=== PATIENT | female | born 1965 | race Caucasian/White ===

== ENCOUNTER 2022-07-30 17:18 | Inpatient (IN) ==
[2022-07-30] MEDS ORDERED: SODIUM CHLORIDE 0.9% 1000ML 1,000 ML IV STA (17:26)
[2022-07-30] MEDS ORDERED: MoRPHine SULFATE 4 MG/ML 1 ML CARP\\VIAL IV STA (18:03)
[2022-07-30] MEDS ORDERED: ONDANSETRON INJ 2 MG/ML 2 ML VIAL IV STA (18:12)
[2022-07-30 18:13] LABS: Basophils # (auto) 0.03 K/uL (0-0.2); Basophils % (auto) 0.3 %; Eosinophils # (auto) 0.03 K/uL (0-0.50); Eosinophils % (auto) 0.3 %; Hematocrit (blood only) 39.1 % (37.0-47.0); Hemoglobin 12.7 g/dl (12.0-16.0); Immature Granulocytes # (auto) 0.04 K/uL (0.01-0.20); Immature Granulocytes % (auto) 0.4 %; Lymphocytes # (auto) 1.92 K/uL (1.2-3.4); Mean Corpuscular Hemoglobin 27.4 pg (25.0-34.0); Mean Corpuscular Hgb Conc 32.5 g/dL (32.0-36.0); Mean Corpuscular Volume 84.4 fL (80.0-100.0); Mean Platelet Volume 11.1 fL (9.4-12.4); Monocytes # (auto) 0.49 K/uL (0.11-0.59); Monocytes % (auto) 4.3 %; Neutrophils # (auto) 8.81 K/uL (1.40-6.50); Neutrophils % (auto) 77.7 %; Platelet Count 314 K/uL (130-400); RDW Standard Deviation 48.9 fL (36.4-46.3); Red Blood Count 4.63 M/uL (4.20-5.40); White Blood Count 11.32 K/ul (4.8-10.8)
--- NOTE | 2022-07-30 18:13 | Emergency Department Note ---
Impression & Plan Abdominal pain, Diverticulitis of intestine with perforation and abscess ED Provider Note INFORMANT: Patient ED PROVIDER(S): Barrera Garcia DO CHIEF COMPLAINT: Generalized abdominal pain PLAN: Disposition: Admission Outpatient prescription management: none Discussion with: I spoke with the hospitalist, who will see the patient for admission/observation and further evaluation and consultation. MEDICAL DECISION MAKING: This is a 57-year-old female who presents to the ED with a chief complaint of abdominal pain. The patient states that her symptoms started last night. She states that initially started in the left lower quadrant. Now it is all over. She describes it as a severe pain. She states that 3 weeks ago she had diverticulitis. She was on 2 courses of antibiotics for this and it seemed like it did not get better yet. She is currently on Bactrim. She has not recall the previous antibiotic she was taking. She states that it was confirmed by CT scan in [place]. She is visiting from out of town. She states that this morning she had a bowel movement but was small. On my exam she has some diffuse tenderness. Signs reveal mild tachycardia with heart rate of 112. Otherwise unremarkable vital signs. She does have a spine stimulator for some chronic pain issues in her legs. No previous abdominal surgeries. A CT scan shows severe divert iculitis with some abscesses that are not amenable to percutaneous drainage. The patient CBC did not show significant leukocytosis or anemia. Electrolytes were normal. Urine did not show infection. The patient was told the results of the test. She will be seen by the hospitalist for further evaluation and care. CT scan images were reviewed with the daughter and patient per their request. Triage Nursing notes reviewed. Vital Signs: reviewed Prior /Outside records reviewed: none Differential diagnosis: Differential includes diverticulitis, bowel perforation appendicitis, pancreatitis, other. Diagnostics, as interpreted by me: 12 lead ECG: none Cardiac Monitoring ordered: none Medical decision rules: none Imaging studies: CT scan of the abdomen pelvis: No bowel obstruction. Radiologist reports severe diverticulitis Procedures: none. Critical care: none. HPI: See MDM above. PAST MEDICAL HISTORY: See Below PAST SURGICAL HISTORY: See Below SOCIAL HISTORY: See Below HOME MEDICATIONS: See Below ALLERGIES: See Below VITALS: See Below PHYSICAL EXAMINATION: See MDM for positive findings otherwise unremarkable. CONSTITUTIONAL/VITAL SIGNS: Reviewed GENERAL:done as appropriate INTEGUMENTARY: done as appropriate HEAD: done as appropriate EYES: done as appropriate RESPIRATORY: done as appropriate CARDIOVASCULAR:done as appropriate GI/ABDOMEN:done as appropriate EXTREMITIES: done as appropriate NEUROLOGICAL: done as appropriate PSYCHIATRIC:done as appropriate MUSCULOSKELETAL:done as appropriate TRIAGE NURSING DOCUMENTATION REVIEWED. Past Med/Surg History Social History Feels Safe at Home: Yes Allergies Allergies Allergy/AdvReac Type Severity Reaction Status Date / Time prednisone Allergy Intermediate ITCHY RASH Verified 07/30/22 19:03 hydrocodone AdvReac Intermediate HOT/COLD, Verified 07/30/22 19:03 SHAKES, NAUSEA Home Meds Home Medications Medication Instructions Recorded Confirmed Progesterone Tab 1 dose PO DIRECTED 07/30/22 07/30/22 albuterol sulfate 90 mcg/actuation 2 puff inhalation Q6H PRN Pain 07/30/22 07/30/22 aerosol inhaler [id number]-[id number]-zzlidlmx 250 1 tab PO DIRECTED PRN Pain 07/30/22 07/30/22 mg-250 mg-65 mg tablet (Excedrin Extra Strength) diclofenac sodium 75 mg 75 mg PO DIRECTED PRN Pain 07/30/22 07/30/22 tablet,delayed release gabapentin 600 mg tablet 600 mg PO BID 07/30/22 07/30/22 nortriptyline 50 mg capsule 50 mg PO HS 07/30/22 07/30/22 sulfamethoxazole 800 1 tab PO BID 07/30/22 07/30/22 mg-trimethoprim 160 mg tablet thyroid (pork) 60 mg tablet (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 60 mg PO DAILY 07/30/22 07/30/22 Thyroid) topiramate 50 mg tablet 50 mg PO DAILY 07/30/22 07/30/22 tramadol 50 mg tablet 50 mg PO DIRECTED PRN Pain 07/30/22 07/30/22 Results & Data (ED) Vital Signs Vital Signs - 24 hr 07/30/22 17:23 07/30/22 18:12 07/30/22 17:26 Temperature 36.8 C Temperature Source Temporal Artery Scan Pulse Rate 112 H 102 H 96 H Pulse Rate [Apical] Pulse Rhythm Regular Pulse Rhythm [Apical] Respiratory Rate 18 Respiratory Effort / Characteristics Non-Labored Respiratory Depth Normal Blood Pressure 115/72 Blood Pressure [Right Arm] Blood Pressure Mean 86 Blood Pressure Mean [Right Arm] Blood Pressure Position Sitting Pulse Oximetry 95 100 Oxygen Delivery Method Room Air Room Air Sepsis Recent Fever Within 48 Hours No Sepsis New/Unexplained Change in Mental Status No Sepsis Action Taken by Nursing No Action Required 07/30/22 19:54 Temperature Temperature Source Pulse Rate Pulse Rate [Apical] 94 H Pulse Rhythm Pulse Rhythm [Apical] Regular Respiratory Rate 16 Respiratory Effort / Characteristics Non-Labored Respiratory Depth Normal Blood Pressure Blood Pressure [Right Arm] 130/88 Blood Pressure Mean Blood Pressure Mean [Right Arm] 102 Blood Pressure Position Pulse Oximetry 99 Oxygen Delivery Method Room Air Sepsis Recent Fever Within 48 Hours Sepsis New/Unexplained Change in Mental Status Sepsis Action Taken by Nursing Laboratory Data 07/30/22 17:42 07/30/22 17:42 Lab Results 07/30/22 07/30/22 07/30/22 Range/Units 17:42 17:42 18:39 WBC 11.32 H (4.8-10.8) K/ul RBC 4.63 (4.20-5.40) M/uL Hgb 12.7 (12.0-16.0) g/dl Hct 39.1 (37.0-47.0) % MCV 84.4 (80.0-100.0) fL MCH 27.4 (25.0-34.0) pg MCHC 32.5 (32.0-36.0) g/dL RDW Std Deviation 48.9 H (36.4-46.3) fL RDW Coeff of Randall 16.0 H (11.5-14.5) % Plt Count 314 (130-400) K/uL MPV 11.1 (9.4-12.4) fL Immature Gran % (Auto) 0.4 % Neut % (Auto) 77.7 % Lymph % (Auto) 17.0 % [place] % (Auto) 4.3 % Eos % (Auto) 0.3 % Baso % (Auto) 0.3 % Neut # (Auto) 8.81 H (1.40-6.50) K/uL Lymph # (Auto) 1.92 (1.2-3.4) K/uL [place] # (Auto) 0.49 (0.11-0.59) K/uL Eos # (Auto) 0.03 (0-0.50) K/uL Baso # (Auto) 0.03 (0-0.2) K/uL Immature Gran # (Auto) 0.04 (0.01-0.20) K/uL Sodium 132 L (136-145) mmol/L Potassium 3.8 (3.5-5.1) mmol/L Chloride 105 (98-107) mmol/L Carbon Dioxide 22 (21-32) mmol/L Anion Gap 5 (3-11) BUN 14 (6-23) mg/dl Creatinine 1.20 (0.6-1.2) mg/dl Est Cr Clr Drug Dosing 50.7 ml/min Est GFR ( Amer) 58.1 ml/min Est GFR (Non-Af Amer) 50.1 ml/min BUN/Creatinine Ratio 11.7 (10-20) Glucose 137 H (70-99(Fasting)) mg/dl Calcium 8.8 (8.6-10.3) mg/dl Total Bilirubin 0.5 (0.2-1.0) mg/dl AST 14 (13-39) U/L ALT 15 (7-52) U/L Alkaline Phosphatase 58 (34-104) U/L Total Protein 6.9 (6.0-8.3) gm/dl Albumin 3.9 (3.4-5.0) gm/dl Globulin 3.0 (2.5-4.0) gm/dl Albumin/Globulin Ratio 1.3 (0.9-2) Lipase 12 (11-82) U/L Urine Color Yellow Urine Appearance Cloudy A (Clear) Urine pH 7.5 (4.5-7.5) Ur Specific [place] 1.008 (1.000-1.030) Urine Protein Negative (Negative) Urine Glucose (UA) Negative (Negative) Urine Ketones Negative (Negative) Urine Blood Negative (Negative) Urine Nitrite Negative (Negative) Urine Bilirubin Negative (Negative) Urine Urobilinogen Negative (Negative) Ur Leukocyte Esterase Negative (Negative) Urine WBC (Auto) 1-5 (0-5) /hpf Urine RBC (Auto) 0-4 (0-4) /hpf U Hyaline Cast (Auto) 1-5 (0-5) /lpf U Epithel Cells (Auto) >30 H (0-5) /lpf Urine Bacteria (Auto) 2+ H (Negative) Administered Medications Piperacillin Sod/Tazobactam Sod (Zosyn) 4.5 gm in 120 mls @ 240 mls/hr IV NOW ONE Stop: 07/30/22 20:08 Last Admin: 07/30/22 19:45 Dose: 240 mls/hr Documented By: NRB Discontinued Medications Sodium Chloride (Nss 1000ml) 1,000 mls @ 999 mls/hr IV .Q1H1M STA Stop: 07/30/22 18:26 Last Infusion: 07/30/22 18:34 Dose: 0 mls/hr Documented By: Admin: 07/30/22 17:41 Dose: 999 mls/hr Documented By: NRB Ioversol (Optiray 350 100ml) 86 ml IV ONCE ONE Stop: 07/30/22 19:03 Last Admin: 07/30/22 19:02 Dose: 86 ml Documented By: RACHEL Ketorolac Tromethamine (Ketorolac 30 Mg/Ml Vial) 30 mg IV NOW STA Stop: 07/30/22 19:40 Last Admin: 07/30/22 19:43 Dose: 30 mg Documented By: SATHISH Morphine Sulfate (Morphine Sulfate 4 Mg/Ml 1 Ml Carp\Vial) 4 mg IV NOW STA Stop: 07/30/22 18:04 Last Admin: 07/30/22 18:09 Dose: 4 mg Documented By: SATHISH Ondansetron HCl (Ondansetron Inj 2 Mg/Ml 2 Ml Vial) 4 mg IV NOW STA Stop: 07/30/22 18:13 Last Admin: 07/30/22 18:14 Dose: 4 mg Documented By: SATHISH Imaging Data Radiologist's Impression: Abdomen/Pelvis CT 07/30/22 17:26 CT SCAN OF THE ABDOMEN AND PELVIS WITH IV CONTRAST CLINICAL HISTORY: Mid abdominal pain. COMPARISON STUDY: No priors. TECHNIQUE: Following the IV administration of 86 cc of Optiray 350, CT scan of the abdomen and pelvis is performed from the lung bases to the proximal femora. Images are reviewed in the axial, sagittal, and coronal planes. IV contrast was administered without complication. A dose lowering technique was utilized adhering to the principles of ALARA. CT DOSE: 576.13 mGy.cm FINDINGS: Lung bases: The heart is normal in size and without pericardial effusion. There is mild elevation of the right hemidiaphragm and bibasilar atelectasis. No airspace consolidation or pleural effusion is identified. Liver: The contrast-enhanced liver is normal in size, contour, and attenuation. There is no intrahepatic biliary ductal dilatation. The hepatic veins and portal veins are patent. Gallbladder: Unremarkable. Spleen: Normal in size and attenuation. Pancreas: Unremarkable. Adrenal glands: Unremarkable. Kidneys: The contrast enhanced kidneys are normal in size and without hydronephrosis. The kidneys enhance symmetrically. Urothelial thickening of the left ureter is likely related to adjacent diverticulitis. Abdominal vasculature: The abdominal aorta is normal in course and caliber. Bowel: There is advanced diverticulosis of left colon. There is wall thickening with pericolonic inflammation and fluid involving the proximal sigmoid colon consistent with acute diverticulitis. There is evidence of contained perforation with foci of extraluminal gas and a 1.7 cm developing fluid collection seen on axial image #334. Question a second 1.9 cm intramural abscess on image #343. No bowel obstruction is seen. Moderate fecal retention is noted in the right colon. The appendix is well-visualized and normal. Peritoneum: There are tiny foci of extraluminal gas adjacent to the sigmoid colon. No free air seen in the diaphragm. There is trace free fluid in the pelvis. There is a fat-containing umbilical hernia. Lymphadenopathy: None. Pelvic viscera: The bladder is distended. There is mildly asymmetric wall thicke luke along the left aspect of the bladder, likely related to adjacent diverticulitis. The uterus is surgically absent. The left ovary appears mildly enlarged and hyperemic, likely representing a reactive oophoritis. Skeletal structures: The skeletal structures are osteopenic. No lytic or blastic lesions are seen. A neurostimulator device is present in the left supragluteal soft tissues. Leads enter the central canal in the mid to lower thoracic region. Sclerotic change is noted in the pubic symphysis. IMPRESSION: 1. There is advanced diverticulosis of the left colon with severe acute sigmoid diverticulitis. 2. There is evidence of contained perforation, with small foci of extraluminal gas and a 1.7 cm developing diverticular abscess. There is also likely a 1.9 cm intramural abscess involving the sigmoid colon. These are too small for percutaneous drainage. 3. Mild asymmetric thickening of the left bladder wall and oophoritis of the left ovary are likely related to inflammation from adjacent diverticulitis. 4. Additional findings as above. ACT 112: Negative or not required by law. Electronically signed by: Kel Chapman M.D. 07/30/2022 7:27 PM Discharge Plan Visit Data Chief Complaint: Abdominal Pain Stated Complaint: ABDOMINAL PAIN ED Provider: Barrera Garcia Discharge Problem: Abdominal pain, Diverticulitis of intestine with perforation and abscess Patient Disposition: Being Evaluated by Hospitalist Forms Stand Alone Forms: My [facility] Prescriptions Prescriptions: No Action gabapentin 600 mg tablet 600 mg PO BID sulfamethoxazole-trimethoprim 800-160 mg tablet 1 tab PO BID Rx Instructions: WAS ORDERED 07/07/22 FOR 7 DAYS. tramadol 50 mg Tablet 50 mg PO DIRECTED PRN (Reason: Pain) Rx Instructions: DID NOT FIND ANY ORDER IN EXT MED HX. 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
[2022-07-30 18:25] LABS: Albumin Globulin Ratio 1.3 (0.9-2); Albumin Level 3.9 gm/dl (3.4-5.0); BUN Creatinine Ratio 11.7 (10-20); Bilirubin,Total 0.5 mg/dl (0.2-1.0); Calcium 8.8 mg/dl (8.6-10.3); Creatinine Clr Calc Pharmacy 50.7 ml/min; Est GFR (African American) 58.1 ml/min; Est GFR (Non-African American) 50.1 ml/min; Potassium 3.8 mmol/L (3.5-5.1); Total Protein 6.9 gm/dl (6.0-8.3)
[2022-07-30 18:54] LABS: Appearance Urine Cloudy (Clear); Bacteria Urine Automated 2+ (Negative); Bilirubin Urine Negative (Negative); Blood Urine Negative (Negative); Color Urine Yellow; Epithelial Cell Urine Auto >30 /lpf (0-5); Glucose Urine UA Negative (Negative); Ketones Urine Negative (Negative); Leukocyte Esterase Urine Negative (Negative); Nitrite Urine Negative (Negative); Protein Urine Negative (Negative); RBC Urine Automated 0-4 /hpf (0-4); Specific Gravity Urine 1.008 (1.000-1.030); Urobilinogen Urine Negative (Negative); pH Urine 7.5 (4.5-7.5)
[2022-07-30] MEDS ORDERED: OPTIRAY 350 100ml IV ONE (19:02)
--- NOTE | 2022-07-30 19:29 | CT Scan Report ---
CT SCAN OF THE ABDOMEN AND PELVIS WITH IV CONTRAST CLINICAL HISTORY: Mid abdominal pain. COMPARISON STUDY: No priors. TECHNIQUE: Following the IV administration of 86 cc of Optiray 350, CT scan of the abdomen and pelvi s is performed from the lung bases to the proximal femora. Images are reviewed in the axial, sagittal , and coronal planes. IV contrast was administered without complication. A dose lowering technique wa s utilized adhering to the principles of ALARA. CT DOSE: 576.13 mGy.cm FINDINGS: Lung bases: The heart is normal in size and without pericardial effusion. There is mild elevation of the right hemidiaphragm and bibasilar atelectasis. No airspace consolidation or pleural effusion is i dentified. Liver: The contrast-enhanced liver is normal in size, contour, and attenuation. There is no intrahepa tic biliary ductal dilatation. The hepatic veins and portal veins are patent. Gallbladder: Unremarkable. Spleen: Normal in size and attenuation. Pancreas: Unremarkable. Adrenal glands: Unremarkable. Kidneys: The contrast enhanced kidneys are normal in size and without hydronephrosis. The kidneys enh ance symmetrically. Urothelial thickening of the left ureter is likely related to adjacent diverticul itis. Abdominal vasculature: The abdominal aorta is normal in course and caliber. Bowel: There is advanced diverticulosis of left colon. There is wall thickening with pericolonic infl ammation and fluid involving the proximal sigmoid colon consistent with acute diverticulitis. There i s evidence of contained perforation with foci of extraluminal gas and a 1.7 cm developing fluid colle ction seen on axial image #334. Question a second 1.9 cm intramural abscess on image #343. No bowel o bstruction is seen. Moderate fecal retention is noted in the right colon. The appendix is well-visua lized and normal. Peritoneum: There are tiny foci of extraluminal gas adjacent to the sigmoid colon. No free air seen i n the diaphragm. There is trace free fluid in the pelvis. There is a fat-containing umbilical hernia. Lymphadenopathy: None. Pelvic viscera: The bladder is distended. There is mildly asymmetric wall thickening along the left a spect of the bladder, likely related to adjacent diverticulitis. The uterus is surgically absent. The left ovary appears mildly enlarged and hyperemic, likely representing a reactive oophoritis. Skeletal structures: The skeletal structures are osteopenic. No lytic or blastic lesions are seen. A neurostimulator device is present in the left supragluteal soft tissues. Leads enter the central sky l in the mid to lower thoracic region. Sclerotic change is noted in the pubic symphysis. IMPRESSION: 1. There is advanced diverticulosis of the left colon with severe acute sigmoid diverticulitis. 2. There is evidence of contained perforation, with small foci of extraluminal gas and a 1.7 cm devel oping diverticular abscess. There is also likely a 1.9 cm intramural abscess involving the sigmoid co ronna. These are too small for percutaneous drainage. 3. Mild asymmetric thickening of the left bladder wall and oophoritis of the left ovary are likely re lated to inflammation from adjacent diverticulitis. 4. Additional findings as above. ACT 112: Negative or not required by law. Electronically signed by: Kel Chapman M.D. 07/30/2022 7:27 PM
[2022-07-30] MEDS ORDERED: PIPERACILLIN/TAZOBACTAM 4.5 GM/120 ML BAG IV ONE (19:39)
[2022-07-30] MEDS ORDERED: KETOROLAC 30 MG/ML VIAL IV STA (19:39)
[2022-07-30] MEDS ORDERED: HYDROmorphone INJ 1 MG/ML SYRINGE IV STA (21:08)
--- NOTE | 2022-07-30 21:24 | Surgery Consultation ---
Date of Consultation July 30, 2022 Assessment & Plan (1) Diverticulitis of intestine with perforation and abscess: Patient is being admitted on the hospitalist service. They have requested a surgical consultation due to the patient's diverticulitis and we therefore recommend proceeding as follows: Provide analgesics Provide antiemetics Implement n.p.o. status (I think it would be okay for patient to have an occasional ice chip for comfort) Provide IV fluid for hydration Continue antibiotics.The patient has had Zosyn administered in the emergency department which should continue I had a lengthy discussion with the patient and her [id number] who was present at bedside. I have outlined the treatment plan for diverticulitis which includes bowel rest, hydration with IV fluids, and IV antibiotics. In addition analgesia and antiemetics will be utilized. I did discuss with the patient that we would like to try conservative measures as outlined above in hopes to avoid an emergency operation. I did discuss with the patient that an emergency operation with an unprepped bowel would most likely necessitate a temporary colostomy. I did discuss with the patient that we will monitor her clinical progress and we will consider advancing her diet as her abdominal exam improves. I also discussed with the patient that if she clinically deteriorates consideration can be given to reimaging her abdomen to see if there is any progression of her illness and I also discussed with her that if she would clinically deteriorate the possibility of requiring an emergency operation would have to be considered. At the present time the patient is noted to be hemodynamically stable and afebrile. We will continue to follow along while the patient is hospitalized with additional recommendations based on her clinical course as it unfolds and her response to the above treatment. Supervising Physician Co-Signing Physician Notes I personally saw and evaluated the patient with Cristian Thomas PA-C and agree with the assessment and plan. 57-year-old female with severe acute sigmoid diverticulitis Her CT images and results were personally viewed by myself, there does not seem to be any well-defined drainable abscess at this time We will try to treat her conservatively with IV fluids, IV antibiotics and n.p.o. status She is been admitted to the medical service We will continue to follow her abdominal exam clinically she may end up needing emergency surgery History of Present Illness Reason for Consultation: Diverticulitis History of Present Illness This is a 57-year-old female who presented to [facility] emergency department secondary to abdominal pain. The patient notes that approximately 3 weeks ago she developed some lower abdominal pain on the left side. She went to an emergency department in [place], [place] and she was placed on a 10-day course of an oral antibiotic which she does not remember the name of. She says that she was off the antibiotics for approximately 2 days but then the pain began to recur and the patient began taking an oral antibiotic again which she is unsure of the name. She subsequent travel to [place] to visit family and over the past 24 hours she began developing worsening abdominal pain. She noted that the pain was initially present greatest in the left lower quadrant but now is in a bandlike pattern across her entire lower abdomen. She denies any additional radiation of the abdominal pain. She notes that is improved with some medicines that were administered in the emergency department but does not note any other palliative factors. She notes that it is worse with certain movements she has had nausea without vomiting. She denies any fevers, shakes, or chills. She said that she did have a bowel movement earlier today and she denies any melena or hematochezia. The patient does report an episode of abdominal pain in October 2021 but she was never formally diagnosed with diverticulitis at that time. She has had a colonoscopy in the past approximately 5 years ago and to the best of her knowledge there is no significant pathology noted on the study. She has had prior abdominal surgeries in the form of an abdominal hysterectomy. The patient does note that she was scheduled to follow-up with a gastroenterology specialist due to her diverticulitis but has not yet had this appointment. Since arrival to the hospital the patient has had labs and imaging which I independently reviewed. A CT scan of the abdomen pelvis showed the patient had evidence of diverticulosis of the left colon with acute sigmoid diverticulitis of the sigmoid colon. Patient was also noted to have evidence of a contained perforation with a small foci of extraluminal gas along with a 1.7 cm developing diverticular abscess. She was also noted to have a 1.9 cm intramural abscess involving the sigmoid colon. Labs included a CBC where her white blood cell count was 11.3. Hemoglobin, hematocrit, and platelet count were normal. Chemistry profile showed sodium was 132. Potassium, BUN, and creatinine were normal. There is no elevation of patient's LFTs or lipase. A urinalysis did not show any pyuria and was negative for nitrites and leukocyte Estrace but there was 2+ bacteria on the study. A COVID test was noted to be negative. At the time of my interview the patient was resting in bed. She did express some abdominal discomfort but was in no distress and noted to be hemodynamically stable. Concerning past medical history the patient notes a history of chronic back pain for which she has a spinal stimulator. Concerning past surgical history the patient has had a vaginal hysterectomy, spine surgery (she is unsure of the exact procedure she had but described what sounds like a laminectomy), and insertion of a spinal stimulator secondary to chronic back pain Allergies the patient is allergic to citrus fruits but no medicines Social history she is a non-smoker Family history there is no family history of coronary artery disease Allergies Allergy/AdvReac Type Severity Reaction Status Date / Time prednisone Allergy Intermediate ITCHY RASH Verified 07/30/22 19:03 hydrocodone AdvReac Intermediate HOT/COLD, Verified 07/30/22 19:03 SHAKES, NAUSEA Home Medications Medication Instructions Recorded Confirmed Type Progesterone Tab 1 dose PO DIRECTED 07/30/22 07/30/22 History albuterol sulfate 90 mcg/actuation 2 puff inhalation Q6H PRN Pain 07/30/22 07/30/22 History aerosol inhaler [id number]-[id number]-[id number] 250 1 tab PO DIRECTED PRN Pain 07/30/22 07/30/22 History mg-250 mg-65 mg tablet (Excedrin Extra Strength) diclofenac sodium 75 mg 75 mg PO DIRECTED PRN Pain 07/30/22 07/30/22 History tablet,delayed release gabapentin 600 mg tablet 600 mg PO BID 07/30/22 07/30/22 History nortriptyline 50 mg capsule 50 mg PO HS 07/30/22 07/30/22 History sulfamethoxazole 800 1 tab PO BID 07/30/22 07/30/22 History mg-trimethoprim 160 mg tablet thyroid (pork) 60 mg tablet ([employer] 120 mg PO DAILY 07/30/22 07/31/22 History Thyroid) topiramate 50 mg tablet 50 mg PO DAILY 07/30/22 07/30/22 History tramadol 50 mg tablet 50 mg PO DIRECTED PRN Pain 07/30/22 07/30/22 History Patient History Social History Smoking Status: Never smoker Hx Alcohol Use: Yes Hx Substance Use: No Preferred Language: Ethiopian Communication Ability: Effective Title 1 Tutor Required: No Beliefs That Will Affect Care: Spiritism Spiritism Beliefs: Quaker Current Living Situation: Spouse Current Living Situation Comment: Lives with at home in [place] Other Information That Helps Us Care for You: No Feels Safe at Home: Yes Safety Concerns: Feels Safe At This Time Assistive Devices: Glasses Review of Systems Constitutional: no fever and no chills Eyes: + corrective lenses Ear, Nose, Mouth, Throat: no ear pain Respiratory: no cough Cardiovascular: no chest pain Gastrointestinal: as per Subjective / HPI Genitourinary: no dysuria Musculoskeletal: + back pain (Chronic problem) Integumentary: no rash Neurologic: no localized weakness Physical Exam Constitutional: WD/WN, vitals as above Eyes: no conjunctival abnormality Wears glasses ENMT: Ears: no hearing impairment and no external ear abnormality Mouth: no oropharynx abnormality Oral mucosa is dry Neck: trachea midline Respiratory: normal respiratory effort, lungs clear to auscultation Cardiovascular: Rate/Rhythm: regular rate and regular rhythm Vessels: dorsalis pedis pulses present and radial pulses present Gastrointestinal (Abdomen): Abdomen is noted to have mild distention. Bowel sounds are hypoactive. There is pain noted with palpation greatest in the left lower quadrant and to a lesser degree the suprapubic and right lower quadrants. There is some slight rebound tenderness noted Musculoskeletal: No calf tenderness, no lower extremity edema Skin: no rashes Neurologic: moves all extremities Psychiatric: A+Ox3, euthymic affect Results & Data Vital Signs (Past 12 Hours) Vital Signs Temp Pulse Pulse Resp BP BP Pulse Ox 07/30/22 19:54 94 H 16 130/88 99 07/30/22 17:26 96 H 100 07/30/22 18:12 102 H 07/30/22 17:23 36.8 C 112 H 18 115/72 95 O2 Del Method 07/30/22 19:54 Room Air 07/30/22 17:26 Room Air 07/30/22 18:12 07/30/22 17:23 Room Air PG Care Time/CCT Total # of Minutes Spent Total Time Spent with Patient: Total time spent is greater than 50% in coordination of care (as documented) at patient's floor/unit and/or counseling patient: Coding Level of Care Code 88500 IN/OBS CONSULT LVL 5,80M Diagnoses Diverticulitis of intestine with perforation and abscess K57.80
[2022-07-30] MEDS: D5W AND 1/2NSS 1,000 ML IV SCH (22:37)
[2022-07-30] MEDS ORDERED: HYDROmorphone INJ 0.5 MG/0.5 ML SYR IV STA (22:41)
[2022-07-30] MEDS ORDERED: HYDROmorphone INJ 0.5 MG/0.5 ML SYR ONE (22:44)
[2022-07-30] MEDS ORDERED: ALBUTEROL HFA 8 GM INHALER INH PRN (23:17)
[2022-07-30] MEDS ORDERED: NON-FORMULARY MEDICATION (Aspirin-Acetaminophen-Caffeine [Excedrin Extra Strength] 250-250 PO PRN (23:17)
[2022-07-30] MEDS ORDERED: PROGESTERONE PO SCH (23:30)
[2022-07-30] MEDS ORDERED: FAMOTIDINE 20 MG in SYRINGE 3 ML IV ONE (23:45)
[2022-07-31] MEDS: ENOXAPARIN INJ 40 MG/0.4 ML SYR SQ SCH ×2 (00:05→22:11)
[2022-07-31] MEDS: GABAPENTIN 600 MG TAB PO SCH ×3 (00:05→22:13)
[2022-07-31] MEDS: PIPERACILLIN/TAZOBACTAM 3.375 GM in DEXTROSE 5% 100 ML IV SCH ×4 (00:06→23:20)
[2022-07-31] MEDS ORDERED: NON-FORMULARY PATIENT'S OWN MED SCH (00:15)
[2022-07-31] MEDS: ACETAMINOPHEN 325 MG TAB PO PRN ×3 (00:19→18:32)
[2022-07-31] MEDS: HYDROmorphone INJ 0.5 MG/0.5 ML SYR IV PRN ×6 (02:50→23:27)
--- NOTE | 2022-07-31 02:58 | History and Physical Report ---
DATE OF ADMISSION: 07/30/2022. CHIEF COMPLAINT: Severe abdominal pain, diverticulitis. HISTORY OF PRESENT ILLNESS: A 57-year-old female with past medical history significant for asthma and allergies, thyroid problems, history of cervical cancer, status post partial hysterectomy 22 years ago and the patient has back surgeries for disk bulge and has spasms in the lower extremity and has a pain stimulator in the lower back, presents with abdominal pain. The patient is from [place], she is visiting her daughter. She came last Sunday. About 3 weeks ago in [place], she went to hospital for abdominal pain and found to have diverticulitis and she was treated with oral antibiotics for 10 days and after finishing 10 days of antibiotics, again her pain was not getting better. She was off of antibiotics for two days and the pain began to recur and the patient began to take oral antibiotics again. Not sure what she was taking, but looks like she currently is on Bactrim. After coming to [place] again after 24 hours, she started developing severe abdominal pain. When the pain is severe, she was having nausea, she was moving her bowels and had a bowel movement today. Denies any blood in stools.. Denies any fevers. Denies any chest pain, no shortness of breath. No cough. Has some headache, no blurred visions, no earache, no runny nose, no sore throat, no difficulty swallowing. She is having some urinary urgency. . Hemodynamically stable. Imaging studies in the ER showed advanced diverticulosis of the left colon with severe acute sigmoid diverticulitis and also evidence of contained perforation with small foci of extraluminal gas and 1.7 cm developing diverticular abscess. There is also likely 1.9 cm intramural abscess involving the sigmoid colon. They are too small for percutaneous drainage. Also, there is asymmetric thickening of the left bladder wall, and also oophoritis of the left ovary, likely related to inflammation of the adjacent diverticulitis. ALLERGIES: PREDNISONE AND HYDROCODONE. PAST MEDICAL HISTORY: As mentioned above. PAST SURGICAL HISTORY: Tonsillectomy, back surgery, partial hysterectomy and spinal stimulator placement. MEDICATIONS: The patient is on albuterol 2 puffs inhalation q. 6 hours p.r.n. Excedrin p.r.n. for migraines, diclofenac 75 mg p.o. p.r.n., gabapentin 600 mg p.o. b.i.d., nortriptyline 50 mg p.o. at bedtime, Colace 1 tablet as directed, Bactrim 1 tablet p.o. b.i.d., Thyroid 60 mg p.o. daily, Topamax 50 mg p.o. daily, tramadol 50 mg p.o. p.r.n. FAMILY HISTORY: Significant for father has hypertension. Sister has hypertension, colitis; mother has thyroid problems. SOCIAL HISTORY: Denies any smoking history. Alcohol, social drinking. REVIEW OF SYSTEMS: As per HPI. Rest of review of systems is negative. PHYSICAL EXAMINATION: GENERAL: The patient is of moderate build, not in acute distress. VITAL SIGNS: Temperature 36.8, pulse 87, respiratory rate 15, blood pressure 103/65, oxygen 96% on room air. HEENT: Pupils equal, round and reactive to light. Oral mucosa moist. NECK: No JVD, no neck masses. CARDIOVASCULAR: S1 and S2 heard. Regular rate and rhythm. No murmur, no gallop. RESPIRATORY SYSTEM: Normal AP diameter. No accessory muscle use. No wheezing, no crackles. ABDOMEN: Soft, bowel sounds present, no distention, Diffuse tenderness, guarding present. CENTRAL NERVOUS SYSTEM: Alert and oriented. Speech is clear. No facial droop. Obeys simple commands. Insight is okay. Moves extremities. EXTREMITIES: No edema, no erythema. LABORATORY DATA: WBC 11.3, hemoglobin 12.7, hematocrit 39.1, platelets 314. Sodium 132, potassium 3.8, chloride 105, bicarbonate 22, BUN 14, creatinine 1.2, serum glucose 137, calcium 8.8, total bilirubin 0.5, AST 14, ALT 15, alkaline phosphatase 58. Urinalysis, +2 bacteria. SARS-CoV-2 rapid test negative. IMAGING DATA: CT abdomen and pelvis with IV contrast shows advanced diverticulosis in the left colon with severe acute sigmoid diverticulitis with evidence of contained perforation with small focal area of extraluminal gas and 1.7 cm developing diverticular abscess with also likely 1.9 cm intramural abscess involving the sigmoid colon. These are too small for percutaneous drainage. Mild asymmetric thickening of the left bladder wall oophoritis of the left ovary are likely related to the inflammation from adjacent diverticulitis. ASSESSMENT AND PLAN: This 57-year-old female presents with severe abdominal pain and found to have recurrent diverticulitis. 1. Severe abdominal pain, recurrent diverticulitis: The patient has symptoms for the last 3 weeks. She was initially treated with 10 days of course of antibiotics. Her symptoms recurred 2 days later and then she started antibiotics, currently on Bactrim. CAT scan showing us the above. Seen by Surgery and recommends n.p.o., IV fluids, IV antiemetics, IV pain medication p.r.n. and IV Zosyn and closely monitor in the medical floor. 2. History of asthma: Continue home inhalers. 3. Deep venous thrombosis prophylaxis: Lovenox. DISPOSITION: Closely monitor in medical floor. Expect to discharge home and follow with family doctor. Job ID: [id number] MTDD
[2022-07-31 06:34] LABS: BUN Creatinine Ratio 11.2 (10-20); Creatinine Clr Calc Pharmacy 61.8 ml/min; Est GFR (African American) 74.2 ml/min; Magnesium 2.2 mg/dl (1.7-2.4)
[2022-07-31] MEDS: D5W AND 1/2NSS 1,000 ML IV SCH ×3 (06:40→22:11)
[2022-07-31 06:49] LABS: Basophils # (auto) 0.03 K/uL (0-0.2); Basophils % (auto) 0.3 %; Eosinophils # (auto) 0.12 K/uL (0-0.50); Eosinophils % (auto) 1.4 %; Hematocrit (blood only) 32.4 % (37.0-47.0); Hemoglobin 10.7 g/dl (12.0-16.0); Immature Granulocytes # (auto) 0.02 K/uL (0.01-0.20); Immature Granulocytes % (auto) 0.2 %; Lymphocytes # (auto) 2.37 K/uL (1.2-3.4); Lymphocytes % (auto) 27.2 %; Mean Corpuscular Hemoglobin 27.5 pg (25.0-34.0); Mean Corpuscular Volume 83.3 fL (80.0-100.0); Mean Platelet Volume 11.2 fL (9.4-12.4); Monocytes # (auto) 0.59 K/uL (0.11-0.59); Monocytes % (auto) 6.8 %; Neutrophils # (auto) 5.58 K/uL (1.40-6.50); Neutrophils % (auto) 64.1 %; Platelet Count 253 K/uL (130-400); RDW Coefficient of Variation 16.2 % (11.5-14.5); RDW Standard Deviation 48.9 fL (36.4-46.3); Red Blood Count 3.89 M/uL (4.20-5.40); White Blood Count 8.71 K/ul (4.8-10.8)
[2022-07-31] MEDS: TOPIRAMATE 50 MG TAB PO SCH (08:00)
[2022-07-31] MEDS: FAMOTIDINE 20 MG in SYRINGE 3 ML IV SCH ×2 (08:00→22:11)
[2022-07-31] MEDS ORDERED: ARMOUR THYROID 30 MG TAB PO SCH (09:00)
[2022-07-31] MEDS ORDERED: FEXOFENADINE HCL 180 MG TAB PO PRN (09:40)
--- NOTE | 2022-07-31 10:18 | Surgery Progress Note ---
Date of Service July 31, 2022 Assessment & Plan (1) Diverticulitis of intestine with perforation and abscess: Plan: She still having significant pain, however her vital signs are all stable and has a normal white blood cell count We will continue to try conservative management over the next 24 to 48 hours and see how she responds to this She still may require operation if she does not improve Admission and Anticipated Discharge Date Admission Date: July 30, 2022 Subjective Patient seen and examined. Still with left-sided abdominal pain. Afebrile. Denies any nausea or vomiting. Review of Systems Constitutional: no fever and no chills Physical Exam Constitutional: WD/WN, vitals as above Gastrointestinal (Abdomen): Inspection/Auscultation: abdomen normal to inspection; abdomen not distended Percussion/Palpation: + abdomen tender (Left lower quadrant), + guarding and abdomen soft; abdomen not rigid and no hernia Results & Data Vital Signs (Past 12 Hours) Vital Signs Temp Pulse Pulse Resp BP BP Pulse Ox 07/31/22 10:04 07/31/22 07:51 36.7 C 89 16 101/64 97 07/30/22 23:10 36.5 C 96 H 16 126/79 97 07/30/22 22:42 87 O2 Del Method 07/31/22 10:04 Room Air 07/31/22 07:51 Room Air 07/30/22 23:10 Room Air 07/30/22 22:42 PG Care Time/CCT Total # of Minutes Spent Total Time Spent with Patient: Total time spent is greater than 50% in coordination of care (as documented) at patient's floor/unit and/or counseling patient: Coding Level of Care Code 69860 SUB INP/OBS CARE 05/10MIN Diagnoses Diverticulitis of intestine with perforation and abscess K57.80
--- NOTE | 2022-07-31 10:44 | Hospitalist Progress Note ---
Date of Service July 31, 2022 Assessment & Plan (1) Abdominal pain: (2) Diverticulitis of intestine with perforation and abscess: Plan This is a 57-year-old female who is visiting the area from [place] and presents with persistent worsening abdominal pain. CT a/p: 1. There is advanced diverticulosis of the left colon with severe acute sigmoid diverticulitis.2. There is evidence of contained perforation, with small foci of extraluminal gas and a 1.7 cm developing diverticular abscess. There is also likely a 1.9 cm intramural abscess involving the sigmoid colon. These are too small for percutaneous drainage.3. Mild asymmetric thickening of the left bladder wall and oophoritis of the left ovary are likely related to inflammation from adjacent diverticulitis.4. Additional findings as above. Abdominal pain Acute sigmoid diverticulitis with perforation and abscess continue NPO, bowel rest, IVF, antiemetics Continue IV zosyn Pepcid IV Q12 general surg on board - continue conservative management for now, possible need for surgical intervention if no improvement will encourage incentive spirometry Hypothyroidism continue armor thyroid Hx of chronic back pain with spinal stimulator in place continue gabapentin, topamax, nortriptyline DVT ppx: SQ Lovenox Dispo: admitted to medical floor, not medically stable for discarge FULL CODE PCP: From [place] A total of 45 minutes was spent with greater than 50% of that time personally viewing all current laboratory work and diagnostic imaging studies obtained in the ED. Additionally, I was able to view the patients past medication reconciliation and history with direct visualization in the patients chart. Included in the time above, a portion of that time was spent assessing the patient while discussing and collaborating with specialists, if necessary, and making medical decision making on treatment plan. All of the above was collaborated with Dr. Barrett. Please see addendum for further details. Admission and Anticipated Discharge Date Admission Date: July 30, 2022 Supervising Physician Co-Signing Physician Notes Attending addendum: The patient was seen and examined in medical floor She complains to abdominal pain with abdomen distention, nausea and or vomiting She has been passing gas and bowel has not moved Does not feel any better since admission On examination Afebrile and hemodynamically stable with heart rate around 93/min Abdomensoft, mildly distended, tender all over and bowel sound diminished Her labs, medications and imaging studies reviewed Has acute sigmoid diverticulitis with abscess Appreciate surgery input and recommendation Review with assessment and plan as outlined above by Sharon Barrett Subjective Patient was seen and evaluated in room 383-1. Follow-up acute diverticulitis. Continuing to have a significant left lower quadrant abdominal pain that is radiating to right lower quadrant. She feels bloated and distended. Passed a small amount of flatus this morning. She denies nausea, vomiting, fever, chills, sweats, chest pain, shortness of breath, dysuria, increased urgency or frequency with urination, melena or hematochezia. She feels pain is not much improved since yesterday, although pain medications do help. She is from [place]. Has had 2 recent courses of antibiotics as outpatient for diverticulitis. She is visiting family in [facility]. Review of Systems Review of Systems: All systems reviewed & are unremarkable except as noted in HPI & below Physical Exam Physical Exam: Gen: WD/WN, NAD, A&O x3 HEENT: Normocephalic, atraumatic, conjunctivae moist, sclerae anicteric, mucous membranes moist. Lung: Clear to Auscultation bilaterally, no wheezes/rales/rhonchi Heart: Regular rate, regular rhythm, no murmurs, rubs, or gallops Abdomen: Soft, distended, TTP LLQ, no rebound/guarding, hypoactive bowel sounds x 4 Extremities: No edema Skin: Warm, no rash, negative turgor. Results & Data Results & Data Vital Signs (Past 12 Hours) Vital Signs Temp Pulse Pulse Resp BP BP Pulse Ox 07/31/22 10:04 07/31/22 07:51 36.7 C 89 16 101/64 97 07/30/22 23:10 36.5 C 96 H 16 126/79 97 07/30/22 22:42 87 O2 Del Method 07/31/22 10:04 Room Air 07/31/22 07:51 Room Air 07/30/22 23:10 Room Air 07/30/22 22:42 Laboratory Results Short CBC 07/30/22 07/31/22 Range/Units 17:42 05:23 WBC 11.32 H 8.71 (4.8-10.8) K/ul Hgb 12.7 10.7 L (12.0-16.0) g/dl Hct 39.1 32.4 L (37.0-47.0) % Plt Count 314 253 (130-400) K/uL BMP 07/30/22 07/31/22 17:42 05:23 Sodium 132 L 133 L Potassium 3.8 4.0 Chloride 105 109 H Carbon Dioxide 22 22 BUN 14 11 Creatinine 1.20 0.98 Glucose 137 H 127 H Calcium 8.8 8.0 L Liver Function 07/30/22 Range/Units 17:42 Total Bilirubin 0.5 (0.2-1.0) mg/dl AST 14 (13-39) U/L ALT 15 (7-52) U/L Alkaline Phosphatase 58 (34-104) U/L Albumin 3.9 (3.4-5.0) gm/dl Urine 07/30/22 Range/Units 18:39 Urine Color Yellow Urine Appearance Cloudy A (Clear) Urine pH 7.5 (4.5-7.5) Ur Specific [place] 1.008 (1.000-1.030) Urine Protein Negative (Negative) Urine Glucose (UA) Negative (Negative) Diagnostic Findings Abdomen/Pelvis CT 07/30/22 17:26 CT SCAN OF THE ABDOMEN AND PELVIS WITH IV CONTRAST CLINICAL HISTORY: Mid abdominal pain. COMPARISON STUDY: No priors. TECHNIQUE: Following the IV administration of 86 cc of Optiray 350, CT scan of the abdomen and pelvis is performed from the lung bases to the proximal femora. Images are reviewed in the axial, sagittal, and coronal planes. IV contrast was administered without complication. A dose lowering technique was utilized adhering to the principles of ALARA. CT DOSE: 576.13 mGy.cm FINDINGS: Lung bases: The heart is normal in size and without pericardial effusion. There is mild elevation of the right hemidiaphragm and bibasilar atelectasis. No airspace consolidation or pleural effusion is identified. Liver: The contrast-enhanced liver is normal in size, contour, and attenuation. There is no intrahepatic biliary ductal dilatation. The hepatic veins and portal veins are patent. Gallbladder: Unremarkable. Spleen: Normal in size and attenuation. Pancreas: Unremarkable. Adrenal glands: Unremarkable. Kidneys: The contrast enhanced kidneys are normal in size and without hydrone phrosis. The kidneys enhance symmetrically. Urothelial thickening of the left ureter is likely related to adjacent diverticulitis. Abdominal vasculature: The abdominal aorta is normal in course and caliber. Bowel: There is advanced diverticulosis of left colon. There is wall thickening with pericolonic inflammation and fluid involving the proximal sigmoid colon consistent with acute diverticulitis. There is evidence of contained perforation with foci of extraluminal gas and a 1.7 cm developing fluid collection seen on axial image #334. Question a second 1.9 cm intramural abscess on image #343. No bowel obstruction is seen. Moderate fecal retention is noted in the right colon. The appendix is well-visualized and normal. Peritoneum: There are tiny foci of extraluminal gas adjacent to the sigmoid colon. No free air seen in the diaphragm. There is trace free fluid in the pelvis. There is a fat-containing umbilical hernia. Lymphadenopathy: None. Pelvic viscera: The bladder is distended. There is mildly asymmetric wall thickening along the left aspect of the bladder, likely related to adjacent diverticulitis. The uterus is surgically absent. The left ovary appears mildly enlarged and hyperemic, likely representing a reactive oophoritis. Skeletal structures: The skeletal structures are osteopenic. No lytic or blastic lesions are seen. A neurostimulator device is present in the left supragluteal soft tissues. Leads enter the central canal in the mid to lower thoracic region. Sclerotic change is noted in the pubic symphysis. IMPRESSION: 1. There is advanced diverticulosis of the left colon with severe acute sigmoid diverticulitis. 2. There is evidence of contained perforation, with small foci of extraluminal gas and a 1.7 cm developing diverticular abscess. There is also likely a 1.9 cm intramural abscess involving the sigmoid colon. These are too small for percutaneous drainage. 3. Mild asymmetric thickening of the left bladder wall and oophoritis of the left ovary are likely related to inflammation from adjacent diverticulitis. 4. Additional findings as above. ACT 112: Negative or not required by law. Electronically signed by: Kel Chapman M.D. 07/30/2022 7:27 PM Medications Administered Current Inpatient Medications Acetaminophen (Acetaminophen 325 Mg Tab) 650 mg PO Q4H PRN PRN Reason: pain/fever Stop: 08/29/22 23:16 Last Admin: 07/31/22 08:49 Dose: 650 mg Albuterol (Albuterol Hfa 8 Gm Inhaler) 2 puffs INH Q6H PRN PRN Reason: Pain Stop: 08/29/22 23:16 Enoxaparin Sodium (Enoxaparin Inj 40 Mg/0.4 Ml Syr) 40 mg SQ HS [facility] Stop: 08/29/22 23:16 Last Admin: 07/31/22 00:05 Dose: 40 mg Fexofenadine HCl (Fexofenadine Hcl 180 Mg Tab) 180 mg PO HS PRN PRN Reason: allergy Stop: 08/30/22 20:59 Gabapentin (Gabapentin 600 Mg Tab) 600 mg PO BID [facility] Stop: 08/29/22 23:16 Last Admin: 07/31/22 08:00 Dose: 600 mg Hydromorphone HCl (Hydromorphone Inj 0.5 Mg/0.5 Ml Syr) 0.5 mg IV Q3H PRN PRN Reason: Pain Stop: 08/13/22 23:16 Last Admin: 07/31/22 10:02 Dose: 0.5 mg Dextrose/Sodium Chloride (D5w And 1/2nss) 1,000 mls @ 125 mls/hr IV .Q8H [facility] Stop: 08/29/22 21:44 Last Admin: 07/31/22 06:40 Dose: 125 mls/hr Piperacillin Sod/Tazobactam (Sod 3.375 gm/ Dextrose) 115 mls @ 28.75 mls/hr IV Q8H [facility]; Protocol Stop: 08/10/22 00:00 Last Admin: 07/31/22 08:00 Dose: 28.8 mls/hr Famotidine 20 mg/ Syringe 5 mls @ 2.5 mls/min IV Q12H [facility] Stop: 08/30/22 08:59 Last Admin: 07/31/22 08:00 Dose: 2.5 mls/min Miscellaneous (*Progesterone*Order Awaiting Action) 1 each N/A QS [facility] Stop: 08/30/22 15:59 Nortriptyline HCl (Nortriptyline Hcl 25 Mg Cap) 50 mg PO HS [facility] Stop: 08/30/22 20:59 Ondansetron HCl (Ondansetron Inj 2 Mg/Ml 2 Ml Vial) 4 mg IV Q6H PRN PRN Reason: Nausea Stop: 08/29/22 23:16 Thyroid ([place] Thyroid 30 Mg Tab) 120 mg PO DAILY [facility] Stop: 08/31/22 08:59 Topiramate (Topiramate 50 Mg Tab) 50 mg PO DAILY [facility] Stop: 08/30/22 08:59 Last Admin: 07/31/22 08:00 Dose: 50 mg
[2022-07-31] MEDS ORDERED: KETOROLAC TROMETHAMINE 15 MG/ML VIAL IV ONE (18:45)
[2022-07-31] MEDS ORDERED: HYDROmorphone INJ 0.5 MG/0.5 ML SYR IV STA (20:12)
[2022-07-31] MEDS ORDERED: FLUCONAZOLE 50 MG TAB PO ONE (21:16)
[2022-07-31 21:55] LABS: Basophils # (auto) 0.03 K/uL (0-0.2); Basophils % (auto) 0.3 %; Eosinophils # (auto) 0.26 K/uL (0-0.50); Eosinophils % (auto) 2.9 %; Hematocrit (blood only) 34.3 % (37.0-47.0); Hemoglobin 11.3 g/dl (12.0-16.0); Immature Granulocytes # (auto) 0.03 K/uL (0.01-0.20); Immature Granulocytes % (auto) 0.3 %; Lymphocytes # (auto) 2.97 K/uL (1.2-3.4); Lymphocytes % (auto) 33.5 %; Mean Corpuscular Hemoglobin 27.6 pg (25.0-34.0); Mean Corpuscular Hgb Conc 32.9 g/dL (32.0-36.0); Mean Corpuscular Volume 83.9 fL (80.0-100.0); Mean Platelet Volume 10.7 fL (9.4-12.4); Monocytes # (auto) 0.55 K/uL (0.11-0.59); Monocytes % (auto) 6.2 %; Neutrophils # (auto) 5.02 K/uL (1.40-6.50); Neutrophils % (auto) 56.8 %; Platelet Count 261 K/uL (130-400); RDW Coefficient of Variation 16.1 % (11.5-14.5); RDW Standard Deviation 49.1 fL (36.4-46.3); Red Blood Count 4.09 M/uL (4.20-5.40); White Blood Count 8.86 K/ul (4.8-10.8)
[2022-07-31 22:03] LABS: BUN Creatinine Ratio 6.9 (10-20); Calcium 8.4 mg/dl (8.6-10.3); Creatinine Clr Calc Pharmacy 59.9 ml/min; Est GFR (African American) 71.6 ml/min; Est GFR (Non-African American) 61.7 ml/min
[2022-07-31] MEDS: NORTRIPTYLINE HCL 25 MG CAP PO SCH (22:12)
--- NOTE | 2022-07-31 22:22 | Communication Note ---
Date of Service: July 31, 2022 I was asked by hospitalist to visit with patient at bedside as she notes continued abdominal pain and family had questions. I visited with the patient at the bedside where she was noted to have a blood pressure of 95/57 and a pulse of 94. She is noted to be afebrile. She appears to be resting comfortably in bed. The patient does note that her pain is worse in the left lower quadrant. She reports that she has begun to pass some flatus but has not had a bowel movement since admission. Patient also reports that she feels as though she is developing a yeast infection related to her antibiotics and has requested Diflucan. (I have ordered this medication for) On physical exam the patient's abdomen is noted to be nonrigid and is actually softer than what I noted at time of admission to the hospital. Bowel sounds are more active than what was noted at time of admission. Patient does have slight rebound tenderness which is also improved from time of admission. I did offer to check a KUB and some blood work and the patient desired to have this done. KUB was performed that did not show any evidence of free air. CBC revealed no leukocytosis. Chemistry profile did not show any evidence of acute kidney injury. We will continue to monitor the patient closely but I do not see any indication for an emergent operation. I again discussed with the patient the rationale behind bowel rest, intravenous fluids, and antibiotics and have noted to her that this may take several days to improve. d/w Roberto Thomas, KUB and labs reviewed. MIld increase in pain, vitals stable, KUB with no free air on my read, wbc normal. Continue non operative management
[2022-07-31] MEDS: ONDANSETRON INJ 2 MG/ML 2 ML VIAL IV PRN (22:55)
[2022-07-31] MEDS: PROGESTERONE 200 MG EXT SCH (23:21)
[2022-08-01] MEDS: HYDROmorphone INJ 0.5 MG/0.5 ML SYR IV PRN ×6 (04:15→21:02)
[2022-08-01] MEDS: D5W AND 1/2NSS 1,000 ML IV SCH ×3 (06:00→23:20)
--- NOTE | 2022-08-01 07:36 | XRay Report ---
XR KUB/Abdomen 1 view CLINICAL HISTORY: abdominal pain TECHNIQUE: 1 view of the abdomen was obtained. Comparison: Comparison is made to CT abdomen pelvis 07/30/2022 FINDINGS: Spinal stimulator is noted. Degenerative changes are seen in the visualized skeleton. The bowel gas p attern is nonobstructive. A moderate amount of stool is noted within the large bowel. IMPRESSION: Nonobstructive bowel gas pattern. ACT 112: Negative or not required by law. Electronically signed by: Krish Ruth M.D. 08/01/2022 7:34 AM
[2022-08-01] MEDS: ARMOUR THYROID 30 MG TAB PO SCH (07:44)
[2022-08-01] MEDS: PIPERACILLIN/TAZOBACTAM 3.375 GM in DEXTROSE 5% 100 ML IV SCH ×3 (08:10→23:15)
[2022-08-01] MEDS: FAMOTIDINE 20 MG in SYRINGE 3 ML IV SCH ×2 (08:11→21:01)
[2022-08-01] MEDS: ACETAMINOPHEN 325 MG TAB PO PRN ×2 (08:52→16:41)
--- NOTE | 2022-08-01 09:55 | Surgery Progress Note ---
Date of Service August 01, 2022 Assessment & Plan (1) Diverticulitis of intestine with perforation and abscess: Plan: Patient here with acute diverticulitis with developing abscess WBC 8 and patient's afebrile with stable vitals She still endorses severe abdominal pain worse in the LLQ- exam unchanged from yesterday We will continue conservative management, npo with ivf and iv abx Will obtain a CT a/p tomorrow morning for further evaluation of diverticulitis...maybe there will be some maturation of an abscess that can be drained Admission and Anticipated Discharge Date Admission Date: July 30, 2022 Supervising Physician Co-Signing Physician Notes I personally saw and evaluated the patient with Laura Coburn PA-C and agree with the assessment and plan. 57-year-old female with severe acute sigmoid diverticulitis She continues to have significant pain, however she is afebrile and has no tachycardia or leukocytosis We will plan to repeat her CT scan of the abdomen pelvis with p.o. and IV contrast tomorrow to see if any drainable abscess has formed Continue n.p.o. status and IV antibiotics Subjective Patient still with abdominal pain, worse in the LLQ. No nausea/vomiting. Reports hunger. Physical Exam Physical Exam: awake/alert, grimaces intermittently in pain Respiratory: normal respiratory effort Gastrointestinal (Abdomen): Percussion/Palpation: + abdomen tender (ttp in LLQ) and abdomen soft; abdomen not rigid Results & Data Vital Signs (Past 12 Hours) Vital Signs Temp Pulse Resp BP Pulse Ox O2 Del Method 08/01/22 07:24 36.7 C 88 18 105/68 97 Room Air PG Care Time/CCT Total # of Minutes Spent Total Time Spent with Patient: Total time spent is greater than 50% in coordination of care (as documented) at patient's floor/unit and/or counseling patient: Coding Level of Care Code 38458 SUB INP/OBS CARE 05/10MIN Diagnoses Diverticulitis of intestine with perforation and abscess K57.80
[2022-08-01] MEDS: GABAPENTIN 600 MG TAB PO SCH ×2 (10:12→21:00)
[2022-08-01] MEDS: TOPIRAMATE 50 MG TAB PO SCH (10:12)
--- NOTE | 2022-08-01 12:53 | Hospitalist Progress Note ---
Date of Service August 01, 2022 Assessment & Plan (1) Abdominal pain: (2) Diverticulitis of intestine with perforation and abscess: Plan This is a 57-year-old female who is visiting the area from [place] and presents with persistent worsening abdominal pain. CT a/p: 1. There is advanced diverticulosis of the left colon with severe acute sigmoid diverticulitis.2. There is evidence of contained perforation, with small foci of extraluminal gas and a 1.7 cm developing diverticular abscess. There is also likely a 1.9 cm intramural abscess involving the sigmoid colon. These are too small for percutaneous drainage.3. Mild asymmetric thickening of the left bladder wall and oophoritis of the left ovary are likely related to inflammation from adjacent diverticulitis.4. Additional findings as above. Abdominal pain Acute sigmoid diverticulitis with perforation and abscess continue NPO, bowel rest, IVF, antiemetics Continue IV zosyn Pepcid IV Q12 general surg on board - continue conservative management for now, possible need for surgical intervention if no improvement will encourage incentive spirometry repeat CT in a.m. to determine if maturation of abscess diluadid for severe pain, will add toradol for up to 2 doses for moderate pain as pt taking Dilaudid regularly Anemia h/h 11.3 and 34.3 likely dilutional monitor Hypothyroidism continue armor thyroid Hx of chronic back pain with spinal stimulator in place continue gabapentin, topamax, nortriptyline DVT ppx: SQ Lovenox Dispo: admitted to medical floor, not medically stable for discharge FULL CODE PCP: From [place] A total of 45 minutes was spent with greater than 50% of that time personally viewing all current laboratory work and diagnostic imaging studies obtained in the ED. Additionally, I was able to view the patients past medication reconciliation and history with direct visualization in the patients chart. Included in the time above, a portion of that time was spent assessing the patient while discussing and collaborating with specialists, if necessary, and making medical decision making on treatment plan. All of the above was collaborated with Dr. Barrett. Please see addendum for further details. Admission and Anticipated Discharge Date Admission Date: July 30, 2022 Supervising Physician Co-Signing Physician Notes Attending addendum: The patient was seen and examined in medical floor She has been stable but he still has significant pain involving the left lower quadrant No fever and or chills and the white count has improved Has been moving gas but no bowel movement yet On examination No apparent distress at rest Remains hemodynamically stable Abdomen-mildly distended, soft, tender mainly in left lower quadrant, bowel sound present Her labs, medications reviewed Has diverticulitis with abscess Continue with current management Will have CT of the abdomen tomorrow as per surgery Agree with assessment and plan as outlined above by Sharon Barrett Subjective Patient was seen and evaluated in room 383-1. Follow-up acute diverticulitis. Continues to have LLQ abd pain, feels slightly worse today. Feels abd becoming more firm. Denies f/c/s, chest pain, sob, n/v, dizziness, lightheaded or difficulty urinating. Physical Exam Physical Exam: Gen: WD/WN, NAD, A&O x3 HEENT: Normocephalic, atraumatic, conjunctivae moist, sclerae anicteric, mucous membranes moist. Lung: Clear to Auscultation bilaterally, no wheezes/rales/rhonchi Heart: Regular rate, regular rhythm, no murmurs, rubs, or gallops Abdomen: Soft, distended, TTP LLQ, +guarding, hypoactive bowel sounds x 4 Extremities: No edema Skin: Warm, no rash, negative turgor. Results & Data Results & Data Vital Signs (Past 12 Hours) Vital Signs Temp Pulse Resp BP Pulse Ox O2 Del Method 08/01/22 11:09 36.7 C 90 16 102/71 96 Room Air 08/01/22 07:24 36.7 C 88 18 105/68 97 Room Air Laboratory Results Short CBC 07/31/22 Range/Units 21:30 WBC 8.86 (4.8-10.8) K/ul Hgb 11.3 L (12.0-16.0) g/dl Hct 34.3 L (37.0-47.0) % Plt Count 261 (130-400) K/uL BMP 07/31/22 21:30 Sodium 136 Potassium 4.0 Chloride 111 H Carbon Dioxide 22 BUN 7 Creatinine 1.01 Glucose 108 H Calcium 8.4 L Medications Administered Current Inpatient Medications Acetaminophen (Acetaminophen 325 Mg Tab) 650 mg PO Q4H PRN PRN Reason: pain/fever Stop: 08/29/22 23:16 Last Admin: 08/01/22 08:52 Dose: 650 mg Albuterol (Albuterol Hfa 8 Gm Inhaler) 2 puffs INH Q6H PRN PRN Reason: Pain Stop: 08/29/22 23:16 Enoxaparin Sodium (Enoxaparin Inj 40 Mg/0.4 Ml Syr) 40 mg SQ HS [facility] Stop: 08/29/22 23:16 Last Admin: 07/31/22 22:11 Dose: 40 mg Fexofenadine HCl (Fexofenadine Hcl 180 Mg Tab) 180 mg PO HS PRN PRN Reason: allergy Stop: 08/30/22 20:59 Gabapentin (Gabapentin 600 Mg Tab) 600 mg PO BID [facility] Stop: 08/29/22 23:16 Last Admin: 08/01/22 10:12 Dose: 600 mg Hydromorphone HCl (Hydromorphone Inj 0.5 Mg/0.5 Ml Syr) 0.5 mg IV Q3H PRN PRN Reason: Pain Stop: 08/13/22 23:16 Last Admin: 08/01/22 11:02 Dose: 0.5 mg Dextrose/Sodium Chloride (D5w And 1/2nss) 1,000 mls @ 125 mls/hr IV .Q8H [facility] Stop: 08/29/22 21:44 Last Admin: 08/01/22 06:00 Dose: 125 mls/hr Piperacillin Sod/Tazobactam (Sod 3.375 gm/ Dextrose) 115 mls @ 28.75 mls/hr IV Q8H [facility]; Protocol Stop: 08/10/22 00:00 Last Admin: 08/01/22 08:10 Dose: 28.8 mls/hr Famotidine 20 mg/ Syringe 5 mls @ 2.5 mls/min IV Q12H [facility] Stop: 08/30/22 08:59 Last Admin: 08/01/22 08:11 Dose: 2.5 mls/min Non-Formulary Patient's Own Med: Progesterone Sr 200mg 1 each EXT HS [facility] Stop: 08/30/22 23:14 Last Admin: 07/31/22 23:21 Dose: 1 cap Nortriptyline HCl (Nortriptyline Hcl 25 Mg Cap) 50 mg PO HS [facility] Stop: 08/30/22 20:59 Last Admin: 07/31/22 22:12 Dose: 50 mg Ondansetron HCl (Ondansetron Inj 2 Mg/Ml 2 Ml Vial) 4 mg IV Q6H PRN PRN Reason: Nausea Stop: 08/29/22 23:16 Last Admin: 07/31/22 22:55 Dose: 4 mg Thyroid ([place] Thyroid 30 Mg Tab) 120 mg PO DAILY [facility] Stop: 08/31/22 08:59 Last Admin: 08/01/22 07:44 Dose: 120 mg Topiramate (Topiramate 50 Mg Tab) 50 mg PO DAILY [facility] Stop: 08/30/22 08:59 Last Admin: 08/01/22 10:12 Dose: 50 mg
[2022-08-01] MEDS: ONDANSETRON INJ 2 MG/ML 2 ML VIAL IV PRN (16:48)
[2022-08-01] MEDS: PROGESTERONE 200 MG EXT SCH (21:00)
[2022-08-01] MEDS: NORTRIPTYLINE HCL 25 MG CAP PO SCH (21:00)
[2022-08-01] MEDS: ENOXAPARIN INJ 40 MG/0.4 ML SYR SQ SCH (21:01)
[2022-08-01] MEDS: KETOROLAC TROMETHAMINE 15 MG/ML VIAL IV PRN (23:19)
[2022-08-01] MEDS ORDERED: Nursing to Pharmacy Communication SCH (23:45)
[2022-08-02] MEDS: HYDROmorphone INJ 0.5 MG/0.5 ML SYR IV PRN ×6 (01:59→22:43)
[2022-08-02 07:39] LABS: Basophils # (auto) 0.03 K/uL (0-0.2); Basophils % (auto) 0.4 %; Eosinophils # (auto) 0.29 K/uL (0-0.50); Eosinophils % (auto) 4.3 %; Hematocrit (blood only) 33.7 % (37.0-47.0); Hemoglobin 10.7 g/dl (12.0-16.0); Immature Granulocytes # (auto) 0.01 K/uL (0.01-0.20); Immature Granulocytes % (auto) 0.1 %; Lymphocytes # (auto) 3.07 K/uL (1.2-3.4); Lymphocytes % (auto) 45.2 %; Mean Corpuscular Hemoglobin 27.3 pg (25.0-34.0); Mean Corpuscular Hgb Conc 31.8 g/dL (32.0-36.0); Mean Platelet Volume 10.7 fL (9.4-12.4); Monocytes # (auto) 0.48 K/uL (0.11-0.59); Monocytes % (auto) 7.1 %; Neutrophils # (auto) 2.91 K/uL (1.40-6.50); Neutrophils % (auto) 42.9 %; Platelet Count 265 K/uL (130-400); RDW Coefficient of Variation 15.6 % (11.5-14.5); Red Blood Count 3.92 M/uL (4.20-5.40); White Blood Count 6.79 K/ul (4.8-10.8)
[2022-08-02 07:46] LABS: BUN Creatinine Ratio 6.7 (10-20); Calcium 8.3 mg/dl (8.6-10.3); Est GFR (African American) 83.4 ml/min; Est GFR (Non-African American) 71.9 ml/min; Potassium 3.9 mmol/L (3.5-5.1)
[2022-08-02] MEDS ORDERED: OPTIRAY 350 100ml IV ONE (08:24)
[2022-08-02] MEDS: ARMOUR THYROID 30 MG TAB PO SCH (08:43)
[2022-08-02] MEDS: D5W AND 1/2NSS 1,000 ML IV SCH ×3 (08:52→23:50)
[2022-08-02] MEDS: ONDANSETRON INJ 2 MG/ML 2 ML VIAL IV PRN (08:52)
[2022-08-02] MEDS: PIPERACILLIN/TAZOBACTAM 3.375 GM in DEXTROSE 5% 100 ML IV SCH ×3 (08:54→23:50)
--- NOTE | 2022-08-02 10:13 | CT Scan Report ---
ABDOMEN AND PELVIS CT WITH IV AND ORAL CONTRAST CT DOSE: 898.57 mGycm HISTORY: Left lower quadrant pain. evaluate diverticulitis and ?abscess formation TECHNIQUE: Multiaxial CT images of the abdomen and pelvis were performed following the use of intrave nous and oral contrast. A dose lowering technique was utilized adhering to the principles of ALARA. COMPARISON STUDY: Abdomen and pelvis CT 07/30/2022. FINDINGS: There is trace right pleural effusion with mild elevation the right hemidiaphragm and right basilar densities consistent with subsegmental atelectasis. No suspicious lytic or blastic osseous l esions. A left gluteal spinal stimulator is again noted. The gallbladder is mildly distended. No gall bladder wall thickening. The liver, spleen, adrenal glands, pancreas, and kidneys unremarkable. No hy dronephrosis. No retroperitoneal lymphadenopathy. Normal caliber abdominal aorta. The bladder is mild ly distended. No bladder wall thickening. Prior hysterectomy. No dilated loops of bowel to suggest an obstruction. Colonic diverticulosis again noted. Normal appendix. Pericolonic inflammatory change ag ain noted at the junction of the descending colon/sigmoid colon with mild bowel wall thickening consi stent with residual diverticulitis. The degree of inflammatory change is similar to the prior study. Small peripheral enhancing fluid collection with a punctate focus of extraluminal gas within the left lower quadrant again noted. This measures approximately 2 cm and is consistent with a small peridive rticular abscess. The small intramural abscess seen on the prior study has slightly decreased in size and measures 1.4 cm, previously measuring 1.9 cm. IMPRESSION: 1. Redemonstration of the acute diverticulitis at the junction of the descending colon/sigmoid colon. The colonic wall thickening and pericolonic inflammatory changes are similar to the prior study. A 2 cm peridiverticular abscess has slightly increased in size and the 1.4 cm intramural abscess has sli ghtly decreased in size. 2. Bladder wall thickening has resolved. 3. Additional findings as described above. ACT 112: Negative or not required by law. Electronically signed by: Virgilio White M.D. 08/02/2022 10:11 AM
[2022-08-02] MEDS: TOPIRAMATE 50 MG TAB PO SCH (10:15)
[2022-08-02] MEDS: GABAPENTIN 600 MG TAB PO SCH ×2 (10:15→20:43)
[2022-08-02] MEDS: ACETAMINOPHEN 325 MG TAB PO PRN (10:16)
[2022-08-02] MEDS: FAMOTIDINE 20 MG in SYRINGE 3 ML IV SCH ×2 (10:16→20:43)
[2022-08-02] MEDS ORDERED: BUTALBITAL/ACETAMIN/CAFFEINE TAB PO PRN (11:11)
--- NOTE | 2022-08-02 12:44 | Surgery Progress Note ---
Date of Service August 02, 2022 Assessment & Plan (1) Diverticulitis of intestine with perforation and abscess: Plan: I reviewed her most recent CT scan from this morning, she seems to have a more mature abscess in the pericolonic area that may be accessible to IR drainage We will contact IR to see if this is possible We will continue n.p.o., IV fluids and IV antibiotics as she remains without a fever or leukocytosis or tachycardia Admission and Anticipated Discharge Date Admission Date: July 30, 2022 Subjective Patient seen and examined. Still with significant left lower abdominal pain. Afebrile. Denies any nausea or vomiting. Review of Systems Constitutional: no fever and no chills Physical Exam Constitutional: WD/WN, vitals as above Gastrointestinal (Abdomen): Inspection/Auscultation: abdomen normal to inspection; abdomen not distended Percussion/Palpation: + abdomen tender (Suprapubic and left lower quadrant), + guarding and abdomen soft; abdomen not rigid and no hernia Results & Data Vital Signs (Past 12 Hours) Vital Signs Temp Pulse Resp BP Pulse Ox O2 Del Method 08/02/22 07:34 36.8 C 81 18 111/76 97 Room Air PG Care Time/CCT Total # of Minutes Spent Total Time Spent with Patient: Total time spent is greater than 50% in coordination of care (as documented) at patient's floor/unit and/or counseling patient: Coding Level of Care Code 96807 SUB INP/OBS CARE 05/10MIN Diagnoses Diverticulitis of intestine with perforation and abscess K57.80
--- NOTE | 2022-08-02 18:31 | Hospitalist Progress Note ---
Date of Service August 02, 2022 Assessment & Plan (1) Abdominal pain: (2) Diverticulitis of intestine with perforation and abscess: Plan This is a 57-year-old female who is visiting the area from [place] and presents with persistent worsening abdominal pain. Abdominal pain Acute sigmoid diverticulitis with perforation and abscess continue NPO, bowel rest, IVF, antiemetics CT a/p: 1. There is advanced diverticulosis of the left colon with severe acute sigmoid diverticulitis.2. There is evidence of contained perforation, with small foci of extraluminal gas and a 1.7 cm developing diverticular abscess. There is also likely a 1.9 cm intramural abscess involving the sigmoid colon. These are too small for percutaneous drainage.3. Mild asymmetric thickening of the left bladder wall and oophoritis of the left ovary are likely related to inflammation from adjacent diverticulitis.4. Additional findings as above. Pepcid IV Q12 Repeat Ct abd/pelvis today - Re-demonstration of the acute diverticulitis at the junction of the descending colon/sigmoid colon. A 2 cm peridiverticular abscess has slightly increased in size and the 1.4 cm intramural abscess has slightly decreased in size. General surg on board - continue conservative management for now as abdominal exam similar to yesterday, afebrile and no leukocytosis Abscess not large enough for intervention by IR at this time, possible need for surgical intervention if no improvement Consider transition to meropenem if preferred by surgical service. Currently on Zosyn PRN pain control Anemia h/h hgb 10.7 (11.3) likely dilutional monitor Hypothyroidism continue armor thyroid Hx of chronic back pain with spinal stimulator in place continue gabapentin, Topamax, nortriptyline Migraine headache Added ice, Fioricet Q4H PRN with improvement (max 6 tabs daily), encourge water intake DVT ppx: SQ Lovenox Dispo: admitted to medical floor, not medically stable for discharge FULL CODE PCP: From [place] I spent a total of 45 minutes coordinating, documenting, and providing care for this patient excluding time spent in the performance of separately billed services. Admission and Anticipated Discharge Date Admission Date: July 30, 2022 Supervising Physician Co-Signing Physician Notes Patient is seen and examined at bedside. Patient states having persistent abdominal pain with no significant improvement. Reviewed chart and repeat CT abdomen imaging. Discussed with patient's family at bedside. Surgery following. Agree with above assessment and plan by physician pharmacy affairs assistant. Continue pain control, antibiotics. IR will be contacted as per surgery Subjective Seen and evaluated in 383 bed 2. Still having significant left lower quadrant abdominal pain that is cramping in nature and worse with movement. Denies any nausea or vomiting. No fever or chills. Also developed migraine headache today with sensitivity to light and noise. Was given Fioricet and as needed IV pain medication with improvement. No lightheadedness, headache, chest pain, shortness of breath, dysuria. Review of Systems Review of Systems: At least ten systems reviewed and negative except as noted in the HPI. Physical Exam Physical Exam: Gen: WD/WN, NAD ,sitting up in bed, A&Ox3 HEENT: Normocephalic, atraumatic, conjunctivae moist, sclerae anicteric, mucous membranes moist Lung: Clear to Auscultation bilaterally, no wheezes/rales/rhonchi Heart: Regular rate, regular rhythm, no murmurs, rubs, or gallops Abdomen: Soft, TTP LLQ, ND +BS x 4 Extremities: no edema Skin: Warm, no rash Results & Data Results & Data Vital Signs (Past 12 Hours) Vital Signs Temp Pulse Resp BP Pulse Ox O2 Del Method 08/02/22 15:18 37.0 C 83 18 112/74 96 Room Air 08/02/22 07:34 36.8 C 81 18 111/76 97 Room Air Laboratory Results Short CBC 08/02/22 Range/Units 07:04 WBC 6.79 (4.8-10.8) K/ul Hgb 10.7 L (12.0-16.0) g/dl Hct 33.7 L (37.0-47.0) % Plt Count 265 (130-400) K/uL BMP 08/02/22 07:04 Sodium 138 Potassium 3.9 Chloride 113 H Carbon Dioxide 20 L BUN 6 Creatinine 0.89 Glucose 100 H Calcium 8.3 L Diagnostic Findings Abdomen/Pelvis CT 07/30/22 17:26 CT SCAN OF THE ABDOMEN AND PELVIS WITH IV CONTRAST CLINICAL HISTORY: Mid abdominal pain. COMPARISON STUDY: No priors. TECHNIQUE: Following the IV administration of 86 cc of Optiray 350, CT scan of the abdomen and pelvis is performed from the lung bases to the proximal femora. Images are reviewed in the axial, sagittal, and coronal planes. IV contrast was administered without complication. A dose lowering technique was utilized adhering to the principles of ALARA. CT DOSE: 576.13 mGy.cm FINDINGS: Lung bases: The heart is normal in size and without pericardial effusion. There is mild elevation of the right hemidiaphragm and bibasilar atelectasis. No a irspace consolidation or pleural effusion is identified. Liver: The contrast-enhanced liver is normal in size, contour, and attenuation. There is no intrahepatic biliary ductal dilatation. The hepatic veins and portal veins are patent. Gallbladder: Unremarkable. Spleen: Normal in size and attenuation. Pancreas: Unremarkable. Adrenal glands: Unremarkable. Kidneys: The contrast enhanced kidneys are normal in size and without hydronephrosis. The kidneys enhance symmetrically. Urothelial thickening of the left ureter is likely related to adjacent diverticulitis. Abdominal vasculature: The abdominal aorta is normal in course and caliber. Bowel: There is advanced diverticulosis of left colon. There is wall thickening with pericolonic inflammation and fluid involving the proximal sigmoid colon consistent with acute diverticulitis. There is evidence of contained perforation with foci of extraluminal gas and a 1.7 cm developing fluid collection seen on axial image #334. Question a second 1.9 cm intramural abscess on image #343. No bowel obstruction is seen. Moderate fecal retention is noted in the right colon. The appendix is well-visualized and normal. Peritoneum: There are tiny foci of extraluminal gas adjacent to the sigmoid colon. No free air seen in the diaphragm. There is trace free fluid in the pelvis. There is a fat-containing umbilical hernia. Lymphadenopathy: None. Pelvic viscera: The bladder is distended. There is mildly asymmetric wall thickening along the left aspect of the bladder, likely related to adjacent diverticulitis. The uterus is surgically absent. The left ovary appears mildly enlarged and hyperemic, likely representing a reactive oophoritis. Skeletal structures: The skeletal structures are osteopenic. No lytic or blastic lesions are seen. A neurostimulator device is present in the left supragluteal soft tissues. Leads enter the central canal in the mid to lower thoracic region. Sclerotic change is noted in the pubic symphysis. IMPRESSION: 1. There is advanced diverticulosis of the left colon with severe acute sigmoid diverticulitis. 2. There is evidence of contained perforation, with small foci of extraluminal gas and a 1.7 cm developing diverticular abscess. There is also likely a 1.9 cm intramural abscess involving the sigmoid colon. These are too small for percutaneous drainage. 3. Mild asymmetric thickening of the left bladder wall and oophoritis of the left ovary are likely related to inflammation from adjacent diverticulitis. 4. Additional findings as above. ACT 112: Negative or not required by law. Electronically signed by: Kel Chapman M.D. 07/30/2022 7:27 PM KUB X-Ray 07/31/22 21:17 XR KUB/Abdomen 1 view CLINICAL HISTORY: abdominal pain TECHNIQUE: 1 view of the abdomen was obtained. Comparison: Comparison is made to CT abdomen pelvis 07/30/2022 FINDINGS: Spinal stimulator is noted. Degenerative changes are seen in the visualized sk [place]. The bowel gas pattern is nonobstructive. A moderate amount of stool is noted within the large bowel. IMPRESSION: Nonobstructive bowel gas pattern. ACT 112: Negative or not required by law. Electronically signed by: Krish Ruth M.D. 08/01/2022 7:34 AM Abdomen/Pelvis CT 08/02/22 07:[address] WITH IV AND ORAL CONTRAST CT DOSE: 898.57 mGycm HISTORY: Left lower quadrant pain. evaluate diverticulitis and ?abscess formation TECHNIQUE: Multiaxial CT images of the abdomen and pelvis were performed following the use of intravenous and oral contrast. A dose lowering technique was utilized adhering to the principles of ALARA. COMPARISON STUDY: Abdomen and pelvis CT 07/30/2022. FINDINGS: There is trace right pleural effusion with mild elevation the right hemidiaphragm and right basilar densities consistent with subsegmental atelectasis. No suspicious lytic or blastic osseous lesions. A left gluteal spinal stimulator is again noted. The gallbladder is mildly distended. No gallbladder wall thickening. The liver, spleen, adrenal glands, pancreas, and kidneys unremarkable. No hydronephrosis. No retroperitoneal lymphadenopathy. Normal caliber abdominal aorta. The bladder is mildly distended. No bladder wall thickening. Prior hysterectomy. No dilated loops of bowel to suggest an obstruction. Colonic diverticulosis again noted. Normal appendix. Pericolonic inflammatory change again noted at the junction of the descending colon/sigmoid colon with mild bowel wall thickening consistent with residual diverticulitis. The degree of inflammatory change is similar to the prior study. Small peripheral enhancing fluid collection with a punctate focus of extraluminal gas within the left lower quadrant again noted. This measures approximately 2 cm and is consistent with a small peridiverticular abscess. The small intramural abscess seen on the prior study has slightly decreased in size and measures 1.4 cm, previously measuring 1.9 cm. IMPRESSION: 1. Redemonstration of the acute diverticulitis at the junction of the descending colon/sigmoid colon. The colonic wall thickening and pericolonic inflammatory changes are similar to the prior study. A 2 cm peridiverticular abscess has slightly increased in size and the 1.4 cm intramural abscess has slightly decreased in size. 2. Bladder wall thickening has resolved. 3. Additional findings as described above. ACT 112: Negative or not required by law. Electronically signed by: Virgilio White M.D. 08/02/2022 10:11 AM
[2022-08-02] MEDS: KETOROLAC TROMETHAMINE 15 MG/ML VIAL IV PRN (19:23)
[2022-08-02] MEDS: ENOXAPARIN INJ 40 MG/0.4 ML SYR SQ SCH (20:43)
[2022-08-02] MEDS: PROGESTERONE 200 MG EXT SCH (20:43)
[2022-08-02] MEDS: NORTRIPTYLINE HCL 25 MG CAP PO SCH (20:43)
[2022-08-03] MEDS: HYDROmorphone INJ 0.5 MG/0.5 ML SYR IV PRN ×6 (06:07→23:29)
[2022-08-03 07:05] LABS: Hematocrit (blood only) 34.3 % (37.0-47.0); Hemoglobin 11.2 g/dl (12.0-16.0); Mean Corpuscular Hemoglobin 27.4 pg (25.0-34.0); Mean Corpuscular Hgb Conc 32.7 g/dL (32.0-36.0); Mean Corpuscular Volume 83.9 fL (80.0-100.0); Mean Platelet Volume 10.5 fL (9.4-12.4); Platelet Count 293 K/uL (130-400); RDW Coefficient of Variation 15.2 % (11.5-14.5); RDW Standard Deviation 46.3 fL (36.4-46.3); Red Blood Count 4.09 M/uL (4.20-5.40); White Blood Count 5.01 K/ul (4.8-10.8)
[2022-08-03] MEDS: ARMOUR THYROID 30 MG TAB PO SCH (07:28)
[2022-08-03] MEDS: D5W AND 1/2NSS 1,000 ML IV SCH ×2 (07:28→16:48)
[2022-08-03 07:30] LABS: Calcium 8.5 mg/dl (8.6-10.3); Potassium 4.2 mmol/L (3.5-5.1)
[2022-08-03 07:36] LABS: BUN Creatinine Ratio 5.3 (10-20); Creatinine Clr Calc Pharmacy 64.4 ml/min; Est GFR (African American) 78.1 ml/min; Est GFR (Non-African American) 67.3 ml/min
--- NOTE | 2022-08-03 08:10 | Surgery Progress Note ---
Date of Service August 03, 2022 Assessment & Plan (1) Diverticulitis of intestine with perforation and abscess: Plan: Patient here with acute diverticulitis with abscess formation WBC 5 and patients vitals are stable and she is afebrile still with LLQ ttp, exam unchanged from yesterday discussed case with IR after repeat CT yesterday and abscess is too small to drain Continue conservative management and supportive care with IVF + IV abx + bowel rest....may need to consider peripheral nutrition in future if likely prolonged NPO No indication for acute surgical intervention at this time Admission and Anticipated Discharge Date Admission Date: July 30, 2022 Supervising Physician Co-Signing Physician Notes I personally saw and evaluated the patient with Laura Coburn PA-C and agree with the assessment and plan. 57-year-old female with severe acute sigmoid diverticulitis with pericolic abscess I did discuss the CT images and findings with interventional radiology and they feel that the abscess is too small for percutaneous drainage We will continue n.p.o., IV antibiotics and IV fluids She remains afebrile, without tachycardia and with a normal white blood cell count Today on exam she is slightly less tender and feels that she is improving She did have a small bowel movement as well We will continue to follow Subjective Patient is doing about the same. Still with LLQ pain, not worse. Passing small amount of flatus, no BM. No nausea/vomiting Physical Exam Physical Exam: awake/alert, no distress Respiratory: normal respiratory effort Gastrointestinal (Abdomen): Inspection/Auscultation: + abdomen distended (mild) Percussion/Palpation: + abdomen tender (ttp in the LLQ), + guarding and abdomen soft; abdomen not rigid Results & Data Vital Signs (Past 12 Hours) Vital Signs Temp Pulse Resp BP BP Pulse Ox O2 Del Method 08/03/22 07:00 36.3 C L 76 18 104/66 95 Room Air 08/02/22 22:00 36.5 C 82 18 120/78 98 Room Air PG Care Time/CCT Total # of Minutes Spent Total Time Spent with Patient: Total time spent is greater than 50% in coordination of care (as documented) at patient's floor/unit and/or counseling patient: Coding Level of Care Code 72562 SUB INP/OBS CARE 05/10MIN Diagnoses Diverticulitis of intestine with perforation and abscess K57.80
[2022-08-03] MEDS: GABAPENTIN 600 MG TAB PO SCH ×2 (08:53→20:50)
[2022-08-03] MEDS: FAMOTIDINE 20 MG in SYRINGE 3 ML IV SCH ×2 (08:53→20:47)
[2022-08-03] MEDS: TOPIRAMATE 50 MG TAB PO SCH (08:53)
[2022-08-03] MEDS: PIPERACILLIN/TAZOBACTAM 3.375 GM in DEXTROSE 5% 100 ML IV SCH ×2 (09:04→16:48)
[2022-08-03] MEDS ORDERED: HYDROmorphone INJ 0.5 MG/0.5 ML SYR IV PRN (12:44)
[2022-08-03] MEDS: ONDANSETRON INJ 2 MG/ML 2 ML VIAL IV PRN (13:28)
--- NOTE | 2022-08-03 15:01 | Hospitalist Progress Note ---
Date of Service August 03, 2022 Assessment & Plan (1) Abdominal pain: (2) Diverticulitis of intestine with perforation and abscess: Plan This is a 57-year-old female who is visiting the area from [place] and presents with persistent worsening abdominal pain. Abdominal pain Acute sigmoid diverticulitis with perforation and abscess Continue NPO, bowel rest, IVF, antiemetics CT a/p: 1. There is advanced diverticulosis of the left colon with severe acute sigmoid diverticulitis.2. There is evidence of contained perforation, with small foci of extraluminal gas and a 1.7 cm developing diverticular abscess. There is also likely a 1.9 cm intramural abscess involving the sigmoid colon. These are too small for percutaneous drainage.3. Mild asymmetric thickening of the left bladder wall and oophoritis of the left ovary are likely related to inflammation from adjacent diverticulitis.4. Additional findings as above. Pepcid IV Q12 Repeat Ct abd/pelvis today - Re-demonstration of the acute diverticulitis at the junction of the descending colon/sigmoid colon. A 2 cm peridiverticular abscess has slightly increased in size and the 1.4 cm intramural abscess has slightly decreased in size. General surg on board - continue conservative management for now as abdominal exam similar to yesterday, afebrile and no leukocytosis Abscess not large enough for intervention by IR at this time, possible need for surgical intervention if no improvement Also reviewed imaging with [facility] who agree with above Continue Zosyn Plan to start PPN tomorrow if patient still NPO PRN pain control Anemia h/h hgb 10.7 (11.3) likely dilutional monitor Hypothyroidism continue armor thyroid Hx of chronic back pain with spinal stimulator in place continue gabapentin, Topamax, nortriptyline Migraine headache --> resolved Added ice, Fioricet Q4H PRN with improvement (max 6 tabs daily), encourage water intake DVT ppx: SQ Lovenox Dispo: admitted to medical floor, not medically stable for discharge FULL CODE PCP: From [place] I spent a total of 55 minutes coordinating, documenting, and providing care for this patient excluding time spent in the performance of separately billed services. Admission and Anticipated Discharge Date Admission Date: July 30, 2022 Supervising Physician Co-Signing Physician Notes Patient is seen and examined at bedside. Abdominal pain slightly better today. Had bowel movement this morning. Ambulating in hallways during my encounter. No new complaints. On exam patient has predominantly left lower quadrant tenderness. Lungs are clear to auscultation, S1-S2, no murmur, alert, awake, oriented, grossly no focal deficits. Acute sigmoid diverticulitis with perforation and abscess--continue current management with IV antibiotics, fluids, pain control. No intervention needed by IR on review of images. Will consider starting PPN if remains n.p.o. tomorrow. I personally reviewed the record. Patient is interviewed and examined at bedside. Patient's care is coordinated with Ellie Allen PA-C. Please refer to the documentation above for details of patient's presentation and for discussion of other issues. Subjective Patient examined in 383 bed 2. Able to ambulate to and from bathroom without issue prior to interview. Still with LLQ pain, that is about the same but not worse. Passing small amount of flatus, no BM. No nausea/vomiting. No fever, chills, lightheadedness, chest pain, shortness of breath, dysuria. Migraine headache resolved. Review of Systems Review of Systems: At least ten systems reviewed and negative except as noted in the HPI. Physical Exam Physical Exam: Gen: WD/WN, NAD ,sitting up in bed, A&Ox3 HEENT: Normocephalic, atraumatic, conjunctivae moist, sclerae anicteric, mucous membranes moist Lung: Clear to Auscultation bilaterally, no wheezes/rales/rhonchi Heart: Regular rate, regular rhythm, no murmurs, rubs, or gallops Abdomen: Soft, TTP LLQ, ND +BS x 4 Extremities: no edema Skin: Warm, no rash Results & Data Results & Data Vital Signs (Past 12 Hours) Vital Signs Temp Pulse Resp BP BP Pulse Ox O2 Del Method 08/03/22 11:29 36.5 C 86 18 111/72 94 Room Air 08/03/22 07:00 36.3 C L 76 18 104/66 95 Room Air Laboratory Results Short CBC 08/03/22 Range/Units 06:37 WBC 5.01 (4.8-10.8) K/ul Hgb 11.2 L (12.0-16.0) g/dl Hct 34.3 L (37.0-47.0) % Plt Count 293 (130-400) K/uL BMP 08/03/22 06:37 Sodium 140 Potassium 4.2 Chloride 112 H Carbon Dioxide 23 BUN 5 L Creatinine 0.94 Glucose 103 H Calcium 8.5 L Diagnostic Findings Abdomen/Pelvis CT 07/30/22 17:26 CT SCAN OF THE ABDOMEN AND PELVIS WITH IV CONTRAST CLINICAL HISTORY: Mid abdominal pain. COMPARISON STUDY: No priors. TECHNIQUE: Following the IV administration of 86 cc of Optiray 350, CT scan of the abdomen and pelvis is performed from the lung bases to the proximal femora. Images are reviewed in the axial, sagittal, and coronal planes. IV contrast was administered without complication. A dose lowering technique was utilized adhering to the principles of ALARA. CT DOSE: 576.13 mGy.cm FINDINGS: Lung bases: The heart is normal in size and without pericardial effusion. There is mild elevation of the right hemidiaphragm and bibasilar atelectasis. No airspace consolidation or pleural effusion is identified. Liver: The contrast-enhanced liver is normal in size, contour, and attenuation. There is no intrahepatic biliary ductal dilatation. The hepatic veins and portal veins are patent. Gallbladder: Unremarkable. Spleen: Normal in size and attenuation. Pancreas: Unremarkable. Adrenal glands: Unremarkable. Kidneys: The contrast enhanced kidneys are normal in size and without hydronephrosis. The kidneys enhance symmetrically. Urothelial thickening of the left ureter is likely related to adjacent diverticulitis. Abdominal vasculature: The abdominal aorta is normal in course and caliber. Bowel: There is advanced diverticulosis of left colon. There is wall thickening with pericolonic inflammation and fluid involving the proximal sigmoid colon consistent with acute diverticulitis. There is evidence of contained perforation with foci of extraluminal gas and a 1.7 cm developing fluid collection seen on axial image #334. Question a second 1.9 cm intramural abscess on image #343. No bowel obstruction is seen. Moderate fecal retention is noted in the right colon. The appendix is well-visualized and normal. Peritoneum: There are tiny foci of extraluminal gas adjacent to the sigmoid colon. No free air seen in the diaphragm. There is trace free fluid in the pelvis. There is a fat-containing umbilical hernia. Lymphadenopathy: None. Pelvic viscera: The bladder is distended. There is mildly asymmetric wall thickening along the left aspect of the bladder, likely related to adjacent diverticulitis. The uterus is surgically absent. The left ovary appears mildly enlarged and hyperemic, likely representing a reactive oophoritis. Skeletal structures: The skeletal structures are osteopenic. No lytic or blastic lesions are seen. A neurostimulator device is present in the left supragluteal soft tissues. Leads enter the central canal in the mid to lower thoracic region. Sclerotic change is noted in the pubic symphysis. IMPRESSION: 1. There is advanced diverticulosis of the left colon with severe acute sigmoid diverticulitis. 2. There is evidence of contained perforation, with small foci of extraluminal gas and a 1.7 cm developing diverticular abscess. There is also likely a 1.9 cm intramural abscess involving the sigmoid colon. These are too small for percutaneous drainage. 3. Mild asymmetric thickening of the left bladder wall and oophoritis of the left ovary are likely related to inflammation from adjacent diverticulitis. 4. Additional findings as above. ACT 112: Negative or not required by law. Electronically signed by: Kel Chapman M.D. 07/30/2022 7:27 PM KUB X-Ray 07/31/22 21:17 XR KUB/Abdomen 1 view CLINICAL HISTORY: abdominal pain TECHNIQUE: 1 view of the abdomen was obtained. Comparison: Comparison is made to CT abdomen pelvis 07/30/2022 FINDINGS: Spinal stimulator is noted. Degenerative changes are seen in the visualized skeleton. The bowel gas pattern is nonobstructive. A moderate amount of stool is noted within the large bowel. IMPRESSION: Nonobstructive bowel gas pattern. ACT 112: Negative or not required by law. Electronically signed by: Krish Ruth M.D. 08/01/2022 7:34 AM Abdomen/Pelvis CT 08/02/22 07:[address] WITH IV AND ORAL CONTRAST CT DOSE: 898.57 mGycm HISTORY: Left lower quadrant pain. evaluate diverticulitis and ?abscess formation TECHNIQUE: Multiaxial CT images of the abdomen and pelvis were performed following the use of intravenous and oral contrast. A dose lowering technique was utilized adhering to the principles of ALARA. COMPARISON STUDY: Abdomen and pelvis CT 07/30/2022. FINDINGS: There is trace right pleural effusion with mild elevation the right hemidiaphragm and right basilar densities consistent with subsegmental atelectasis. No suspicious lytic or blastic osseous lesions. A left gluteal spinal stimulator is again noted. The gallbladder is mildly distended. No gallbladder wall thickening. The liver, spleen, adrenal glands, pancreas, and kidneys unremarkable. No hydronephrosis. No retroperitoneal lymphadenopathy. Normal caliber abdominal aorta. The bladder is mildly distended. No bladder wall thickening. Prior hysterectomy. No dilated loops of bowel to suggest an obstruction. Colonic diverticulosis again noted. Normal appendix. Pericolonic inflammatory change again noted at the junction of the descending colon/sigmoid colon with mild bowel wall thickening consistent with residual diverticulitis. The degree of inflammatory change is similar to the prior study. Small peripheral enhancing fluid collection with a punctate focus of extraluminal gas within the left lower quadrant again noted. This measures approximately 2 cm and is consistent with a small peridiverticular abscess. The small intramural abscess seen on the prior study has slightly decreased in size and measures 1.4 cm, previously measuring 1.9 cm. IMPRESSION: 1.Redemonstration of the acute diverticulitis at the junction of the descending colon/sigmoid colon. The colonic wall thickening and pericolonic inflammatory changes are similar to the prior study. A 2 cm peridiverticular abscess has slightly increased in size and the 1.4 cm intramural abscess has slightly decreased in size. 2. Bladder wall thickening has resolved. 3. Additional findings as described above. ACT 112: Negative or not required by law. Electronically signed by: Virgilio White M.D. 08/02/2022 10:11 AM
[2022-08-03] MEDS: KETOROLAC TROMETHAMINE 15 MG/ML VIAL IV PRN (18:17)
[2022-08-03] MEDS: ENOXAPARIN INJ 40 MG/0.4 ML SYR SQ SCH (20:50)
[2022-08-03] MEDS: PROGESTERONE 200 MG EXT SCH (20:50)
[2022-08-03] MEDS: NORTRIPTYLINE HCL 25 MG CAP PO SCH (20:50)
[2022-08-04] MEDS: PIPERACILLIN/TAZOBACTAM 3.375 GM in DEXTROSE 5% 100 ML IV SCH ×4 (00:45→23:58)
[2022-08-04] MEDS: D5W AND 1/2NSS 1,000 ML IV SCH ×4 (00:45→23:58)
[2022-08-04] MEDS: HYDROmorphone INJ 0.5 MG/0.5 ML SYR IV PRN ×4 (03:50→22:26)
[2022-08-04] MEDS: KETOROLAC TROMETHAMINE 15 MG/ML VIAL IV PRN ×3 (05:11→20:40)
[2022-08-04 07:36] LABS: Hematocrit (blood only) 33.4 % (37.0-47.0); Mean Corpuscular Hemoglobin 27.4 pg (25.0-34.0); Mean Corpuscular Hgb Conc 32.9 g/dL (32.0-36.0); Mean Corpuscular Volume 83.3 fL (80.0-100.0); Mean Platelet Volume 10.5 fL (9.4-12.4); Platelet Count 282 K/uL (130-400); RDW Coefficient of Variation 15.3 % (11.5-14.5); RDW Standard Deviation 46.8 fL (36.4-46.3); Red Blood Count 4.01 M/uL (4.20-5.40); White Blood Count 4.76 K/ul (4.8-10.8)
[2022-08-04 07:45] LABS: BUN Creatinine Ratio 4.6 (10-20); Calcium 8.4 mg/dl (8.6-10.3); Creatinine Clr Calc Pharmacy 69.6 ml/min; Est GFR (African American) 85.7 ml/min; Magnesium 1.9 mg/dl (1.7-2.4); Potassium 3.8 mmol/L (3.5-5.1)
--- NOTE | 2022-08-04 08:06 | Surgery Progress Note ---
Date of Service August 04, 2022 Assessment & Plan (1) Diverticulitis of intestine with perforation and abscess: Plan: Patient here with acute diverticulitis with abscess formation WBC 4 and patients vitals are stable and she is afebrile Her LLQ discomfort is still present, but starting to improve again we discussed case with IR after repeat CT and abscess is too small to drain We will start patient on clear liquids today and keep her there fore today, consider further advancement tomorrow if continues to improve Otherwise continue on IV abx while in house, transition to course of po abx upon discharge No indication for acute surgical intervention at this time [facility] surgery covering over the weekend Admission and Anticipated Discharge Date Admission Date: July 30, 2022 Supervising Physician Co-Signing Physician Notes I personally saw and evaluated the patient with Laura Coburn PA-C and agree with the assessment and plan. 57-year-old female with severe acute sigmoid diverticulitis with pericolic abscess She is improving clinically with less tenderness on exam She remains afebrile, no leukocytosis We will trial clear liquids today, keep on IV antibiotics Continue to advance diet as she tolerates with hope for discharge Sunday or Sunday If she were to worsen with initiation of a diet, would repeat CT scan to look for any increase in abscess size that could be amenable to percutaneous drainage We will continue to follow Subjective Patient reports feeling better today in regards to abdominal pain. No nausea/vomiting. + hunger. + BM yesterday Physical Exam Physical Exam: awake/alert, no distress Gastrointestinal (Abdomen): Inspection/Auscultation: + abdomen distended (mild) Percussion/Palpation: + abdomen tender (improving ttp in the LLQ) and abdomen soft Results & Data Vital Signs (Past 12 Hours) Vital Signs Temp Pulse Resp BP Pulse Ox O2 Del Method 08/03/22 21:46 36.6 C 77 16 117/77 96 Room Air PG Care Time/CCT Total # of Minutes Spent Total Time Spent with Patient: Total time spent is greater than 50% in coordination of care (as documented) at patient's floor/unit and/or counseling patient: Coding Level of Care Code 70458 SUB INP/OBS CARE 05/10MIN Diagnoses Diverticulitis of intestine with perforation and abscess K57.80
[2022-08-04] MEDS: ARMOUR THYROID 30 MG TAB PO SCH (08:56)
[2022-08-04] MEDS: FAMOTIDINE 20 MG in SYRINGE 3 ML IV SCH ×2 (08:57→20:45)
[2022-08-04] MEDS: GABAPENTIN 600 MG TAB PO SCH ×2 (10:23→20:41)
[2022-08-04] MEDS: TOPIRAMATE 50 MG TAB PO SCH (10:23)
[2022-08-04] MEDS: ADVANCED PROBIOTIC 1250 MG CAPSULE PO SCH (16:19)
--- NOTE | 2022-08-04 19:10 | Hospitalist Progress Note ---
Date of Service August 04, 2022 Assessment & Plan (1) Abdominal pain: (2) Diverticulitis of intestine with perforation and abscess: Plan Patient is a 57 yr female who is visiting the area from [place] and presents with persistent worsening abdominal pain. Acute sigmoid diverticulitis with perforation and abscess --CT a/p: There is advanced diverticulosis of the left colon with severe acute sigmoid diverticulitis. There is evidence of contained perforation, with small foci of extraluminal gas and a 1.7 cm developing diverticular abscess. There is also likely a 1.9 cm intramural abscess involving the sigmoid colon. These are too small for percutaneous drainage. Mild asymmetric thickening of the left bladder wall and oophoritis of the left ovary are likely related to inflammation from adjacent diverticulitis. Additional findings as above. --Repeat Ct abd/pelvis: - Re-demonstration of the acute diverticulitis at the junction of the descending colon/sigmoid colon. A 2 cm peridiverticular abscess has slightly increased in size and the 1.4 cm intramural abscess has slightly decreased in size. --Abscess not large enough for intervention by IR at this time, possible need for surgical intervention if no improvement -- Initially on bowel rest Pain control Conservative management Appreciate surgery input Continue Zosyn Tolerating clear liquid diet Anemia h/h hgb 10.7 (11.3) likely dilutional monitor Hypothyroidism continue armor thyroid Hx of chronic back pain with spinal stimulator in place continue gabapentin, Topamax, nortriptyline Migraine headache --> resolved Added ice, Fioricet Q4H PRN with improvement (max 6 tabs daily), encourage water intake DVT Px: SQ Lovenox Code Status FULL CODE Admission and Anticipated Discharge Date Admission Date: July 30, 2022 Subjective Patient is seen and examined at bedside Abdominal pain improving Tolerating liquid diet Had loose stools today Denies any chest pain, dyspnea, dizziness, nausea Review of Systems Review of Systems: All systems reviewed & are unremarkable except as noted in Subjective Physical Exam Physical Exam: Physical Exam: Vitals signs as noted above General Appearance:Moderately built and nourished, no apparent distress Head: normocephalic, Atraumatic Eyes: normal inspection, EOMI Neck: supple, Trachea midline Respiratory/Chest: Normal breath sounds, CTA, No accessory muscle use Cardiovascular: S1, S2, No murmur Abdomen/GI:Soft, LLQ tender predominantly, Bowel sounds present Extremities/Musculoskeletal:normal inspection, no edema Neurologic/Psych:AAOX3, grossly no focal neurological deficits Skin: normal color, warm Results & Data Results & Data Vital Signs (Past 12 Hours) Vital Signs Temp Pulse Resp BP Pulse Ox O2 Del Method 08/04/22 14:58 36.6 C 80 16 128/80 98 Room Air 08/04/22 11:11 36.6 C 88 16 135/76 98 Room Air Laboratory Results Short CBC 08/04/22 Range/Units 07:01 WBC 4.76 L (4.8-10.8) K/ul Hgb 11.0 L (12.0-16.0) g/dl Hct 33.4 L (37.0-47.0) % Plt Count 282 (130-400) K/uL BMP 08/04/22 07:01 Sodium 138 Potassium 3.8 Chloride 112 H Carbon Dioxide 21 BUN 4 L Creatinine 0.87 Glucose 103 H Calcium 8.4 L
[2022-08-04] MEDS: ENOXAPARIN INJ 40 MG/0.4 ML SYR SQ SCH (20:40)
[2022-08-04] MEDS: PROGESTERONE 200 MG EXT SCH (20:40)
[2022-08-04] MEDS: NORTRIPTYLINE HCL 25 MG CAP PO SCH (20:41)
[2022-08-05] MEDS: KETOROLAC TROMETHAMINE 15 MG/ML VIAL IV PRN ×2 (03:09→09:10)
[2022-08-05 07:19] LABS: Est GFR (African American) 83.4 ml/min; Est GFR (Non-African American) 71.9 ml/min
[2022-08-05] MEDS: HYDROmorphone INJ 0.5 MG/0.5 ML SYR IV PRN ×2 (07:53→13:23)
[2022-08-05] MEDS: D5W AND 1/2NSS 1,000 ML IV SCH ×2 (07:59→16:33)
[2022-08-05] MEDS: FAMOTIDINE 20 MG in SYRINGE 3 ML IV SCH ×2 (08:03→20:08)
[2022-08-05] MEDS: PIPERACILLIN/TAZOBACTAM 3.375 GM in DEXTROSE 5% 100 ML IV SCH ×2 (08:07→15:57)
[2022-08-05] MEDS: ARMOUR THYROID 30 MG TAB PO SCH (09:04)
[2022-08-05] MEDS: ADVANCED PROBIOTIC 1250 MG CAPSULE PO SCH (09:04)
[2022-08-05] MEDS: GABAPENTIN 600 MG TAB PO SCH ×2 (09:04→20:01)
[2022-08-05] MEDS: TOPIRAMATE 50 MG TAB PO SCH (09:04)
--- NOTE | 2022-08-05 11:56 | Surgery Progress Note ---
Date of Service August 05, 2022 Assessment & Plan (1) Abdominal pain: Plan: Improved. (2) Diverticulitis of intestine with perforation and abscess: Plan: Improving on IV antibiotics. Will advance diet to full liquids. If tolerates, soft diet in AM and probably home on Sunday. she had multiple questions regarding surgery timing, recovery, etc which were answered. Total time spent in chart review, writing note and counseling patient was 31 minutes. Admission and Anticipated Discharge Date Admission Date: July 30, 2022 Subjective Overall she is feeling better. She has tolerated a clear liquid diet. Eating does bring on some twinges of discomfort in the left lower quadrant. This also occurs if she moves around significantly. No nausea or vomiting. No bowel movement yesterday but continues to pass flatus. No abdominal pain but does notice the discomfort at times. Review of Systems Review of Systems: All systems reviewed & are unremarkable except as noted in HPI & below Physical Exam Constitutional: WD/WN, vitals as above Eyes: PERRL, conjunctivae normal, anicteric sclerae Respiratory: normal respiratory effort, lungs clear to auscultation Cardiovascular: RRR, no murmur, no edema Gastrointestinal (Abdomen): Inspection/Auscultation: abdomen normal to inspection and normal bowel sounds; abdomen not distended Percussion/Palpation: + abdomen tender (mild in the left lower quadrant) and abdomen soft; no guarding Musculoskeletal: Extremities: extremities normal to inspection Neurologic: awake; no focal motor deficits Psychiatric: A+Ox3, euthymic affect Results & Data Vital Signs (Past 12 Hours) Vital Signs Temp Pulse Resp BP Pulse Ox O2 Del Method 08/05/22 07:15 36.5 C 75 16 134/80 96 Room Air
[2022-08-05 14:45] LABS: Cdiff Toxin B Gene (2yr or >) Positive Cdiff Gene (Neg)
[2022-08-05 16:15] LABS: Cdiff Toxin A+B Negative Cdiff Toxin (Negative)
[2022-08-05 16:17] LABS: Cdiff Antigen Positive
--- NOTE | 2022-08-05 18:27 | Hospitalist Progress Note ---
Date of Service August 05, 2022 Assessment & Plan (1) Abdominal pain: (2) Diverticulitis of intestine with perforation and abscess: Plan Patient is a 57 yr female who is visiting the area from [place] and presents with persistent worsening abdominal pain. Acute sigmoid diverticulitis with perforation and abscess --CT a/p: There is advanced diverticulosis of the left colon with severe acute sigmoid diverticulitis. There is evidence of contained perforation, with small foci of extraluminal gas and a 1.7 cm developing diverticular abscess. There is also likely a 1.9 cm intramural abscess involving the sigmoid colon. These are too small for percutaneous drainage. Mild asymmetric thickening of the left bladder wall and oophoritis of the left ovary are likely related to inflammation from adjacent diverticulitis. Additional findings as above. --Repeat Ct abd/pelvis: - Re-demonstration of the acute diverticulitis at the junction of the descending colon/sigmoid colon. A 2 cm peridiverticular abscess has slightly increased in size and the 1.4 cm intramural abscess has slightly decreased in size. --Abscess not large enough for intervention by IR at this time, possible need for surgical intervention if no improvement -- Initially on bowel rest Pain control Conservative management Appreciate surgery input Continue Zosyn Advance to full liquid diet Stool for C. difficile: Gene positive, toxin negative. Empirically started on p.o. vancomycin for prophylaxis Anemia h/h hgb 10.7 (11.3) likely dilutional monitor Hypothyroidism continue armor thyroid Hx of chronic back pain with spinal stimulator in place continue gabapentin, Topamax, nortriptyline Migraine headache --> resolved Added ice, Fioricet Q4H PRN with improvement (max 6 tabs daily), encourage water intake DVT Px: SQ Lovenox Code Status FULL CODE Admission and Anticipated Discharge Date Admission Date: July 30, 2022 Subjective Patient is seen and examined at bedside Abdominal pain continues to improve Tolerating full code diet No diarrhea today Denies any chest pain, dyspnea, dizziness, nausea, vomiting Review of Systems Review of Systems: All systems reviewed & are unremarkable except as noted in Subjective Physical Exam Physical Exam: Physical Exam: Vitals signs as noted above General Appearance:Moderately built and nourished, no apparent distress Head: normocephalic, Atraumatic Eyes: normal inspection, EOMI Neck: supple, Trachea midline Respiratory/Chest: Normal breath sounds, CTA, No accessory muscle use Cardiovascular: S1, S2, No murmur Abdomen/GI:Soft, non tender predominantly, Bowel sounds present Extremities/Musculoskeletal:normal inspection, no edema Neurologic/Psych:AAOX3, grossly no focal neurological deficits Skin: normal color, warm Results & Data Results & Data Vital Signs (Past 12 Hours) Vital Signs Temp Pulse Resp BP BP Pulse Ox O2 Del Method 08/05/22 15:27 36.7 C 93 H 16 124/75 96 Room Air 08/05/22 07:15 36.5 C 75 16 134/80 96 Room Air Laboratory Results [facility] 08/05/22 06:37 Creatinine 0.89
[2022-08-05] MEDS: RASPBERRY SYRUP 5 ML UDP PO SCH (18:31)
[2022-08-05] MEDS: VANCOMYCIN HCL 125 MG/2.5ML SOLN PO SCH (18:31)
[2022-08-05] MEDS: ENOXAPARIN INJ 40 MG/0.4 ML SYR SQ SCH (20:00)
[2022-08-05] MEDS: PROGESTERONE 200 MG EXT SCH (20:00)
[2022-08-05] MEDS: NORTRIPTYLINE HCL 25 MG CAP PO SCH (20:01)
[2022-08-05] MEDS: ONDANSETRON INJ 2 MG/ML 2 ML VIAL IV PRN (21:40)
[2022-08-06] MEDS: D5W AND 1/2NSS 1,000 ML IV SCH ×3 (00:01→17:17)
[2022-08-06] MEDS: PIPERACILLIN/TAZOBACTAM 3.375 GM in DEXTROSE 5% 100 ML IV SCH ×3 (00:01→15:59)
[2022-08-06] MEDS: oxyCODONE/ACETAMINOPHEN 5mg/325mg TAB PO PRN (00:03)
[2022-08-06] MEDS: RASPBERRY SYRUP 5 ML UDP PO SCH ×2 (04:56→18:04)
[2022-08-06] MEDS: VANCOMYCIN HCL 125 MG/2.5ML SOLN PO SCH ×2 (04:56→18:04)
[2022-08-06] MEDS: HYDROmorphone INJ 0.5 MG/0.5 ML SYR IV PRN ×2 (07:09→19:10)
[2022-08-06 07:19] LABS: Hematocrit (blood only) 32.8 % (37.0-47.0); Hemoglobin 11.1 g/dl (12.0-16.0); Mean Corpuscular Hemoglobin 27.8 pg (25.0-34.0); Mean Corpuscular Hgb Conc 33.8 g/dL (32.0-36.0); Mean Platelet Volume 10.3 fL (9.4-12.4); Platelet Count 332 K/uL (130-400); RDW Coefficient of Variation 15.2 % (11.5-14.5); RDW Standard Deviation 45.7 fL (36.4-46.3); White Blood Count 4.95 K/ul (4.8-10.8)
[2022-08-06 07:53] LABS: Calcium 8.6 mg/dl (8.6-10.3); Creatinine Clr Calc Pharmacy 72.9 ml/min; Est GFR (African American) 90.7 ml/min; Est GFR (Non-African American) 78.3 ml/min; Magnesium 1.9 mg/dl (1.7-2.4); Potassium 3.6 mmol/L (3.5-5.1)
--- NOTE | 2022-08-06 09:10 | Surgery Progress Note ---
Date of Service August 06, 2022 Assessment & Plan (1) Abdominal pain: Plan: Improved. (2) Diverticulitis of intestine with perforation and abscess: Plan: Improving slowly on IV antibiotics. Now on PO vanco for C.dif gene pos, toxin negative. Still with twinges of pain at times but overall better. No leukocytosis, exam benign. Advance to low fiber diet today. Wondering about need for repeat CT. Explained this is used if her condition worsens but due to radiation exposure risk, is not used to check that things are improving. Informed that medical records release would need to be signed. Probable discharge tomorrow. Admission and Anticipated Discharge Date Admission Date: July 30, 2022 Subjective Pt notes that yesterday she was in a "funk". Still would have episodes of twinging type pain in left lower quadrant, more after eating. Took anti nausea meds last night. Did have three small bowel movements. Started on PO vancomycin for C. Dif gene pos, toxin negative. Would like to try regular food today. Wondering about plans after discharge - would like to have her records/ disc of images. Physical Exam Constitutional: WD/WN, vitals as above Gastrointestinal (Abdomen): Inspection/Auscultation: abdomen normal to inspection and normal bowel sounds; abdomen not distended Percussion/Palpation: abdomen soft; abdomen nontender and no guarding Neurologic: awake; no focal motor deficits Psychiatric: A+Ox3, euthymic affect Results & Data Vital Signs (Past 12 Hours) Vital Signs Temp Pulse Resp BP BP Pulse Ox O2 Del Method 08/06/22 07:49 36.7 C 80 16 122/74 97 Room Air 08/05/22 21:42 36.5 C 90 16 139/87 99 Room Air Laboratory Results Abnormal lab results 08/05/22 08/06/22 08/06/22 Range/Units 13:20 06:39 06:39 RBC 4.00 L (4.20-5.40) M/uL Hgb 11.1 L (12.0-16.0) g/dl Hct 32.8 L (37.0-47.0) % RDW Coeff of Randall 15.2 H (11.5-14.5) % Chloride 114 H (98-107) mmol/L BUN 5 L (6-23) mg/dl BUN/Creatinine Ratio 6.0 L (10-20) Glucose 102 H (70-99(Fasting)) mg/dl Stl C. diff Tox B Gene Positive Cdiff Gene H (Neg)
[2022-08-06] MEDS: ADVANCED PROBIOTIC 1250 MG CAPSULE PO SCH (09:59)
[2022-08-06] MEDS: FAMOTIDINE 20 MG in SYRINGE 3 ML IV SCH ×2 (10:00→20:00)
[2022-08-06] MEDS: GABAPENTIN 600 MG TAB PO SCH ×2 (10:00→20:00)
[2022-08-06] MEDS: ARMOUR THYROID 30 MG TAB PO SCH (10:00)
[2022-08-06] MEDS: TOPIRAMATE 50 MG TAB PO SCH (10:00)
--- NOTE | 2022-08-06 16:46 | Hospitalist Progress Note ---
Date of Service August 06, 2022 Assessment & Plan (1) Abdominal pain: (2) Diverticulitis of intestine with perforation and abscess: Plan Patient is a 57 yr female who is visiting the area from [place] and presents with persistent worsening abdominal pain. Acute sigmoid diverticulitis with perforation and abscess --CT a/p: There is advanced diverticulosis of the left colon with severe acute sigmoid diverticulitis. There is evidence of contained perforation, with small foci of extraluminal gas and a 1.7 cm developing diverticular abscess. There is also likely a 1.9 cm intramural abscess involving the sigmoid colon. These are too small for percutaneous drainage. Mild asymmetric thickening of the left bladder wall and oophoritis of the left ovary are likely related to inflammation from adjacent diverticulitis. Additional findings as above. --Repeat Ct abd/pelvis: - Re-demonstration of the acute diverticulitis at the junction of the descending colon/sigmoid colon. A 2 cm peridiverticular abscess has slightly increased in size and the 1.4 cm intramural abscess has slightly decreased in size. --Abscess not large enough for intervention by IR at this time, possible need for surgical intervention if no improvement -- Initially on bowel rest Pain control Conservative management Appreciate surgery input Continue Zosyn Stool for C. difficile: Gene positive, toxin negative. Empirically started on p.o. vancomycin for prophylaxis Advance to low fiber diet Surgery following Anemia h/h hgb 10.7 (11.3) likely dilutional monitor Hypothyroidism continue armor thyroid Hx of chronic back pain with spinal stimulator in place continue gabapentin, Topamax, nortriptyline Migraine headache --> resolved Added ice, Fioricet Q4H PRN with improvement (max 6 tabs daily), encourage water intake DVT Px: SQ Lovenox Code Status FULL CODE Admission and Anticipated Discharge Date Admission Date: July 30, 2022 Subjective Patient is seen and examined at bedside Denies any significant abdominal pain No diarrhea today Tolerating current diet Denies any chest pain, dyspnea, dizziness, nausea, vomiting Review of Systems Review of Systems: All systems reviewed & are unremarkable except as noted in Subjective Physical Exam Physical Exam: Physical Exam: Vitals signs as noted above General Appearance:Moderately built and nourished, no apparent distress Head: normocephalic, Atraumatic Eyes: normal inspection, EOMI Neck: supple, Trachea midline Respiratory/Chest: Normal breath sounds, CTA, No accessory muscle use Cardiovascular: S1, S2, No murmur Abdomen/GI:Soft, non tender predominantly, Bowel sounds present Extremities/Musculoskeletal:normal inspection, no edema Neurologic/Psych:AAOX3, grossly no focal neurological deficits Skin: normal color, warm Results & Data Results & Data Vital Signs (Past 12 Hours) Vital Signs Temp Pulse Resp BP Pulse Ox O2 Del Method 08/06/22 07:49 36.7 C 80 16 122/74 97 Room Air Laboratory Results Short CBC 08/06/22 Range/Units 06:39 WBC 4.95 (4.8-10.8) K/ul Hgb 11.1 L (12.0-16.0) g/dl Hct 32.8 L (37.0-47.0) % Plt Count 332 (130-400) K/uL BMP 08/06/22 06:39 Sodium 140 Potassium 3.6 Chloride 114 H Carbon Dioxide 21 BUN 5 L Creatinine 0.83 Glucose 102 H Calcium 8.6
[2022-08-06] MEDS: NORTRIPTYLINE HCL 25 MG CAP PO SCH (20:00)
[2022-08-06] MEDS: ENOXAPARIN INJ 40 MG/0.4 ML SYR SQ SCH (20:00)
[2022-08-06] MEDS: PROGESTERONE 200 MG EXT SCH (20:00)
[2022-08-06] MEDS ORDERED: Nursing to Pharmacy Communication SCH (22:45)
[2022-08-07] MEDS: PIPERACILLIN/TAZOBACTAM 3.375 GM in DEXTROSE 5% 100 ML IV SCH ×2 (00:17→08:57)
[2022-08-07] MEDS: oxyCODONE/ACETAMINOPHEN 5mg/325mg TAB PO PRN ×2 (00:20→17:24)
[2022-08-07] MEDS: D5W AND 1/2NSS 1,000 ML IV SCH ×2 (02:18→10:48)
[2022-08-07] MEDS: RASPBERRY SYRUP 5 ML UDP PO SCH ×2 (05:39→17:24)
[2022-08-07] MEDS: VANCOMYCIN HCL 125 MG/2.5ML SOLN PO SCH ×2 (05:40→17:24)
[2022-08-07] MEDS: HYDROmorphone INJ 0.5 MG/0.5 ML SYR IV PRN (07:40)
[2022-08-07 07:51] LABS: BUN Creatinine Ratio 10.7 (10-20); Calcium 8.6 mg/dl (8.6-10.3); Creatinine Clr Calc Pharmacy 72.1 ml/min; Est GFR (African American) 89.4 ml/min; Est GFR (Non-African American) 77.2 ml/min; Potassium 3.6 mmol/L (3.5-5.1)
--- NOTE | 2022-08-07 08:32 | Surgery Progress Note ---
Date of Service August 07, 2022 Assessment & Plan (1) Diverticulitis of intestine with perforation and abscess: Plan: Patient here with acute diverticulitis with abscess formation WBC 4 yesterday and patients vitals are stable and she is afebrile LLQ tenderness is much improved She is tolerating small amounts of low fiber diet without worsening symptoms If does well with bfast/lunch she may be discharged from our point of view on a course of po abx to complete at home No need for repeat CT today as she is doing better Will need outpatient colonoscopy May follow up with us to discuss elective sigmoid resection after colonoscopy and will leave dispo instructions in chart Admission and Anticipated Discharge Date Admission Date: July 30, 2022 Subjective Patient is doing well. Diet was advanced to low fiber, she has some allergies to certain foods, but tolerating small amounts of what she is able to eat thus far. Mild nausea yesterday, but better today. Last BM was ?Sunday. No emesis. No worsening abdominal pain. Physical Exam Physical Exam: awake/alert, no distress Gastrointestinal (Abdomen): Inspection/Auscultation: abdomen not distended Percussion/Palpation: + abdomen tender (LLQ ttp much improved) and abdomen soft Results & Data Vital Signs (Past 12 Hours) Vital Signs Temp Pulse Resp BP BP Pulse Ox O2 Del Method 08/07/22 07:42 36.9 C 83 16 138/82 98 Room Air 08/06/22 22:37 36.3 C L 85 16 162/89 H 100 Room Air PG Care Time/CCT Total # of Minutes Spent Total Time Spent with Patient: Total time spent is greater than 50% in coordination of care (as documented) at patient's floor/unit and/or counseling patient: Coding Level of Care Code 11538 SUB INP/OBS CARE 05/10MIN Diagnoses Diverticulitis of intestine with perforation and abscess K57.80
[2022-08-07] MEDS: FAMOTIDINE 20 MG in SYRINGE 3 ML IV SCH (08:57)
[2022-08-07] MEDS: ARMOUR THYROID 30 MG TAB PO SCH (08:57)
[2022-08-07] MEDS: TOPIRAMATE 50 MG TAB PO SCH (08:57)
[2022-08-07] MEDS: ADVANCED PROBIOTIC 1250 MG CAPSULE PO SCH (08:57)
[2022-08-07] MEDS: GABAPENTIN 600 MG TAB PO SCH (08:57)
--- NOTE | 2022-08-07 15:00 | Hospitalist Progress Note ---
Date of Service August 07, 2022 Assessment & Plan (1) Abdominal pain: (2) Diverticulitis of intestine with perforation and abscess: Plan Patient is a 57 yr female who is visiting the area from [place] and presents with persistent worsening abdominal pain. Acute sigmoid diverticulitis with perforation and abscess --CT a/p: There is advanced diverticulosis of the left colon with severe acute sigmoid diverticulitis. There is evidence of contained perforation, with small foci of extraluminal gas and a 1.7 cm developing diverticular abscess. There is also likely a 1.9 cm intramural abscess involving the sigmoid colon. These are too small for percutaneous drainage. Mild asymmetric thickening of the left bladder wall and oophoritis of the left ovary are likely related to inflammation from adjacent diverticulitis. Additional findings as above. --Repeat Ct abd/pelvis: - Re-demonstration of the acute diverticulitis at the junction of the descending colon/sigmoid colon. A 2 cm peridiverticular abscess has slightly increased in size and the 1.4 cm intramural abscess has slightly decreased in size. --Abscess not large enough for intervention by IR at this time, possible need for surgical intervention if no improvement -- Initially on bowel rest Pain control Conservative management Appreciate surgery input Continue Zosyn>> transition to p.o. antibiotics upon discharge to complete the course Stool for C. difficile: Gene positive, toxin negative. Empirically started on p.o. vancomycin for prophylaxis Tolerating low fiber diet Needs outpatient colonoscopy and assessment for possible elective sigmoid resection Anemia h/h hgb 10.7 (11.3) likely dilutional monitor Hypothyroidism continue armor thyroid Hx of chronic back pain with spinal stimulator in place continue gabapentin, Topamax, nortriptyline Migraine headache --> resolved Added ice, Fioricet Q4H PRN with improvement (max 6 tabs daily), encourage water intake DVT Px: SQ Lovenox Code Status FULL CODE Disposition Home Admission and Anticipated Discharge Date Admission Date: July 30, 2022 Subjective Patient is seen and examined at bedside Tolerating low fiber diet Intermittent abdominal discomfort but otherwise feels well No new complaints Denies any chest pain, dyspnea, dizziness, vomiting Plan to discharge home today Review of Systems Review of Systems: All systems reviewed & are unremarkable except as noted in Subjective Physical Exam Physical Exam: Physical Exam: Vitals signs as noted above General Appearance:Moderately built and nourished, no apparent distress Head: normocephalic, Atraumatic Eyes: normal inspection, EOMI Neck: supple, Trachea midline Respiratory/Chest: Normal breath sounds, CTA, No accessory muscle use Cardiovascular: S1, S2, No murmur Abdomen/GI:Soft, non tender predominantly, Bowel sounds present Extremities/Musculoskeletal:normal inspection, no edema Neurologic/Psych:AAOX3, grossly no focal neurological deficits Skin: normal color, warm Results & Data Results & Data Vital Signs (Past 12 Hours) Vital Signs Temp Pulse Resp BP Pulse Ox O2 Del Method 08/07/22 07:42 36.9 C 83 16 138/82 98 Room Air Laboratory Results [facility] 08/07/22 07:01 Sodium 140 Potassium 3.6 Chloride 113 H Carbon Dioxide 22 BUN 9 Creatinine 0.84 Glucose 108 H Calcium 8.6
--- NOTE | 2022-08-07 15:10 | Discharge Summary ---
Date of Service August 07, 2022 Admission HPI Per Admitting Provider CHIEF COMPLAINT: Severe abdominal pain, diverticulitis. HISTORY OF PRESENT ILLNESS: A 57-year-old female with past medical history significant for asthma and allergies, thyroid problems, history of cervical cancer, status post partial hysterectomy 22 years ago and the patient has back surgeries for disk bulge and has spasms in the lower extremity and has a pain stimulator in the lower back, presents with abdominal pain. The patient is from [place], she is visiting her daughter. She came last Sunday. About 3 weeks ago in [place], she went to hospital for abdominal pain and found to have diverticulitis and she was treated with oral antibiotics for 10 days and after finishing 10 days of antibiotics, again her pain was not getting better. She was off of antibiotics for two days and the pain began to recur and the patient began to take oral antibiotics again. Not sure what she was taking, but looks like she currently is on Bactrim. After coming to [place] again after 24 hours, she started developing severe abdominal pain. When the pain is severe, she was having nausea, she was moving her bowels and had a bowel movement today. Denies any blood in stools.. Denies any fevers. Denies any chest pain, no shortness of breath. No cough. Has some headache, no blurred visions, no earache, no runny nose, no sore throat, no difficulty swallowing. She is having some urinary urgency. . Hemodynamically stable. Imaging studies in the ER showed advanced diverticulosis of the left colon with severe acute sigmoid diverticulitis and also evidence of contained perforation with small foci of e xtraluminal gas and 1.7 cm developing diverticular abscess. There is also likely 1.9 cm intramural abscess involving the sigmoid colon. They are too small for percutaneous drainage. Also, there is asymmetric thickening of the left bladder wall, and also oophoritis of the left ovary, likely related to inflammation of the adjacent diverticulitis. Admission Exam Per Admitting Provider PHYSICAL EXAMINATION: GENERAL: The patient is of moderate build, not in acute distress. VITAL SIGNS: Temperature 36.8, pulse 87, respiratory rate 15, blood pressure 103/65, oxygen 96% on room air. HEENT: Pupils equal, round and reactive to light. Oral mucosa moist. NECK: No JVD, no neck masses. CARDIOVASCULAR: S1 and S2 heard. Regular rate and rhythm. No murmur, no gallop. RESPIRATORY SYSTEM: Normal AP diameter. No accessory muscle use. No wheezing, no crackles. ABDOMEN: Soft, bowel sounds present, no distention, Diffuse tenderness, guarding present. CENTRAL NERVOUS SYSTEM: Alert and oriented. Speech is clear. No facial droop. Obeys simple commands. Insight is okay. Moves extremities. EXTREMITIES: No edema, no erythema. Principal Diagnosis Acute sigmoid diverticulitis with perforation and abscess Discharge Data Allergies Allergy/AdvReac Type Severity Reaction Status Date / Time grapefruit Allergy Severe Swelling Verified 08/04/22 16:16 of Lip/Tongue/Throat lemon Allergy Severe Swelling Verified 08/04/22 16:16 of Lip/Tongue/Throat wainwright Allergy Severe Swelling Verified 08/04/22 16:16 of Lip/Tongue/Throat orange Allergy Severe Swelling Verified 08/04/22 16:16 of Lip/Tongue/Throat prednisone Allergy Intermediate ITCHY RASH Verified 07/30/22 19:03 hydrocodone AdvReac Intermediate HOT/COLD, Verified 07/30/22 19:03 SHAKES, NAUSEA Consultations 07/30/22 20:03 ED Decision to Admit Stat 07/30/22 23:17 Consult General Surgery Routine Procedures Performed Laboratory Results WBC 4.95 K/ul (4.8-10.8) 08/06/22 06:39 RBC 4.00 M/uL (4.20-5.40) L 08/06/22 06:39 Hgb 11.1 g/dl (12.0-16.0) L 08/06/22 06:39 Hct 32.8 % (37.0-47.0) L 08/06/22 06:39 MCV 82.0 fL (80.0-100.0) 08/06/22 06:39 MCH 27.8 pg (25.0-34.0) 08/06/22 06:39 MCHC 33.8 g/dL (32.0-36.0) 08/06/22 06:39 RDW Std Deviation 45.7 fL (36.4-46.3) 08/06/22 06:39 RDW Coeff of Randall 15.2 % (11.5-14.5) H 08/06/22 06:39 Plt Count 332 K/uL (130-400) 08/06/22 06:39 MPV 10.3 fL (9.4-12.4) 08/06/22 06:39 Immature Gran % (Auto) 0.1 % 08/02/22 07:04 Neut % (Auto) 42.9 % 08/02/22 07:04 Lymph % (Auto) 45.2 % 08/02/22 07:04 Woodruff % (Auto) 7.1 % 08/02/22 07:04 Eos % (Auto) 4.3 % 08/02/22 07:04 Baso % (Auto) 0.4 % 08/02/22 07:04 Neut # (Auto) 2.91 K/uL (1.40-6.50) 08/02/22 07:04 Lymph # (Auto) 3.07 K/uL (1.2-3.4) 08/02/22 07:04 Woodruff # (Auto) 0.48 K/uL (0.11-0.59) 08/02/22 07:04 Eos # (Auto) 0.29 K/uL (0-0.50) 08/02/22 07:04 Baso # (Auto) 0.03 K/uL (0-0.2) 08/02/22 07:04 Immature Gran # (Auto) 0.01 K/uL (0.01-0.20) 08/02/22 07:04 Sodium 140 mmol/L (136-145) 08/07/22 07:01 Potassium 3.6 mmol/L (3.5-5.1) 08/07/22 07:01 Chloride 113 mmol/L (98-107) H 08/07/22 07:01 Carbon Dioxide 22 mmol/L (21-32) 08/07/22 07:01 Anion Gap 5 (3-11) 08/07/22 07:01 BUN 9 mg/dl (6-23) 08/07/22 07:01 Creatinine 0.84 mg/dl (0.6-1.2) 08/07/22 07:01 Est Cr Clr Drug Dosing 72.1 ml/min 08/07/22 07:01 Est GFR ( Amer) 89.4 ml/min 08/07/22 07:01 Est GFR (Non-Af Amer) 77.2 ml/min 08/07/22 07:01 BUN/Creatinine Ratio 10.7 (10-20) 08/07/22 07:01 Glucose 108 mg/dl (70-99(Fasting)) H 08/07/22 07:01 Calcium 8.6 mg/dl (8.6-10.3) 08/07/22 07:01 Magnesium 1.9 mg/dl (1.7-2.4) 08/06/22 06:39 Total Bilirubin 0.5 mg/dl (0.2-1.0) 07/30/22 17:42 AST 14 U/L (13-39) 07/30/22 17:42 ALT 15 U/L (7-52) 07/30/22 17:42 Alkaline Phosphatase 58 U/L (34-104) 07/30/22 17:42 Total Protein 6.9 gm/dl (6.0-8.3) 07/30/22 17:42 Albumin 3.9 gm/dl (3.4-5.0) 07/30/22 17:42 Globulin 3.0 gm/dl (2.5-4.0) 07/30/22 17:42 Albumin/Globulin Ratio 1.3 (0.9-2) 07/30/22 17:42 Lipase 12 U/L (11-82) 07/30/22 17:42 Urine Color Yellow 07/30/22 18:39 Urine Appearance Cloudy (Clear) A 07/30/22 18:39 Urine pH 7.5 (4.5-7.5) 07/30/22 18:39 Ur Specific [place] 1.008 (1.000-1.030) 07/30/22 18:39 Urine Protein Negative (Negative) 07/30/22 18:39 Urine Glucose (UA) Negative (Negative) 07/30/22 18:39 Urine Ketones Negative (Negative) 07/30/22 18:39 Urine Blood Negative (Negative) 07/30/22 18:39 Urine Nitrite Negative (Negative) 07/30/22 18:39 Urine Bilirubin Negative (Negative) 07/30/22 18:39 Urine Urobilinogen Negative (Negative) 07/30/22 18:39 Ur Leukocyte Esterase Negative (Negative) 07/30/22 18:39 Urine WBC (Auto) 1-5 /hpf (0-5) 07/30/22 18:39 Urine RBC (Auto) 0-4 /hpf (0-4) 07/30/22 18:39 U Hyaline Cast (Auto) 1-5 /lpf (0-5) 07/30/22 18:39 U Epithel Cells (Auto) >30 /lpf (0-5) H 07/30/22 18:39 Urine Bacteria (Auto) 2+ (Negative) H 07/30/22 18:39 Stl C. diff Tox B Gene Positive Cdiff Gene (Neg) H 08/05/22 13:20 Stl C.difficile Tox A&B Negative Cdiff Toxin (Negative) 08/05/22 13:20 SARS-CoV-2, RNA, NAAT NEGATIVE (NEGATIVE) 07/30/22 19:58 Impressions KUB X-Ray 07/31/22 21:17 XR KUB/Abdomen 1 view CLINICAL HISTORY: abdominal pain TECHNIQUE: 1 view of the abdomen was obtained. Comparison: Comparison is made to CT abdomen pelvis 07/30/2022 FINDINGS: Spinal stimulator is noted. Degenerative changes are seen in the visualized skeleton. The bowel gas pattern is nonobstructive. A moderate amount of stool is noted within the large bowel. IMPRESSION: Nonobstructive bowel gas pattern. ACT 112: Negative or not required by law. Electronically signed by: Krish Ruth M.D. 08/01/2022 7:34 AM Abdomen/Pelvis CT 08/02/22 07:[address] WITH IV AND ORAL CONTRAST CT DOSE: 898.57 mGycm HISTORY: Left lower quadrant pain. evaluate diverticulitis and ?abscess formation TECHNIQUE: Multiaxial CT images of the abdomen and pelvis were performed following the use of intravenous and oral contrast. A dose lowering technique was utilized adhering to the principles of ALARA. COMPARISON STUDY: Abdomen and pelvis CT 07/30/2022. FINDINGS: There is trace right pleural effusion with mild elevation the right hemidiaphragm and right basilar densities consistent with subsegmental atelectasis. No suspicious lytic or blastic osseous lesions. A left gluteal spinal stimulator is again noted. The gallbladder is mildly distended. No gallbladder wall thickening. The liver, spleen, adrenal glands, pancreas, and kidneys unremarkable. No hydronephrosis. No retroperitoneal lymphadenopathy. Normal caliber abdominal aorta. The bladder is mildly distended. No bladder wall thickening. Prior hysterectomy. No dilated loops of bowel to suggest an obstruction. Colonic diverticulosis again noted. Normal appendix. Pericolonic in flammatory change again noted at the junction of the descending colon/sigmoid colon with mild bowel wall thickening consistent with residual diverticulitis. The degree of inflammatory change is similar to the prior study. Small peripheral enhancing fluid collection with a punctate focus of extraluminal gas within the left lower quadrant again noted. This measures approximately 2 cm and is consistent with a small peridiverticular abscess. The small intramural abscess seen on the prior study has slightly decreased in size and measures 1.4 cm, previously measuring 1.9 cm. IMPRESSION: 1. Redemonstration of the acute diverticulitis at the junction of the descending colon/sigmoid colon. The colonic wall thickening and pericolonic inflammatory changes are similar to the prior study. A 2 cm peridiverticular abscess has slightly increased in size and the 1.4 cm intramural abscess has slightly decreased in size. 2. Bladder wall thickening has resolved. 3. Additional findings as described above. ACT 112: Negative or not required by law. Electronically signed by: Virgilio White M.D. 08/02/2022 10:11 AM Ordered Studies 07/30/22 17:26 CT abd pelvis IV con only Stat 08/02/22 07:00 CT Abd and Pelvis [CT abd pelvis oral and IV con] Routine Hospital Course (1) Abdominal pain: (2) Diverticulitis of intestine with perforation and abscess: Plan Patient is a 57 yr female who is visiting the area from [place] and presents with persistent worsening abdominal pain. Acute sigmoid diverticulitis with perforation and abscess --CT a/p: There is advanced diverticulosis of the left colon with severe acute sigmoid diverticulitis. There is evidence of contained perforation, with small foci of extraluminal gas and a 1.7 cm developing diverticular abscess. There is also likely a 1.9 cm intramural abscess involving the sigmoid colon. These are too small for percutaneous drainage. Mild asymmetric thickening of the left bladder wall and oophoritis of the left ovary are likely related to inflammation from adjacent diverticulitis. Additional findings as above. --Repeat Ct abd/pelvis: - Re-demonstration of the acute diverticulitis at the junction of the descending colon/sigmoid colon. A 2 cm peridiverticular abscess has slightly increased in size and the 1.4 cm intramural abscess has slightly decreased in size. --Abscess not large enough for intervention by IR at this time, possible need for surgical intervention if no improvement -- Initially on bowel rest Pain control Conservative management Appreciate surgery input Continue Zosyn>> transition to p.o. antibiotics upon discharge to complete the course Stool for C. difficile: Gene positive, toxin negative. Empirically started on p.o. vancomycin for prophylaxis Tolerating low fiber diet Needs outpatient colonoscopy and assessment for possible elective sigmoid res ection Anemia h/h hgb 10.7 (11.3) likely dilutional monitor Hypothyroidism continue armor thyroid Hx of chronic back pain with spinal stimulator in place continue gabapentin, Topamax, nortriptyline Migraine headache --> resolved Added ice, Fioricet Q4H PRN with improvement (max 6 tabs daily), encourage water intake DVT Px: SQ Lovenox Code Status FULL CODE Disposition Home Total Time Total Time Spent Total Time Spent (In Minutes): 57 minutes Discharge Plan Discharge Items Patient Disposition: Home - Self-Care Reason For Visit: ABDOMINAL PAIN Discharge Diagnosis: Perforated diverticulitis with abscess Activity: Per Instructions section Lifting: Gradually increase as tolerated Bathing: No limitations Exercise/Sports: Gradually increase as tolerated Driving/Machine Use: no driving while taking any narcotics for pain Non-emergency contact: Primary Care Provider and Surgeon Call non-emergency contact if: you have any medication questions, your symptoms worsen, your pain is not controlled, your pain is concerning for you and your temperature is above 101.5 Follow-up/Referrals: Kashmir Biggs DO [Physician] - (You may call the office to schedule an appointment if you will be in the area to discuss possible surgical intervention down the road for your recurrent diverticulitis after you have had a colonoscopy) PCP,NO [Primary Care Provider] - Diet: Low Fiber Addtl Attending Provider Instructions: Please continue to follow a low fiber diet over the next few weeks until you fully recover from your diverticulitis flare. You will be provided with a handout prior to discharge Please complete the full course of antibiotic prescribed to you Addtl Harness Installer Provider Instructions: Follow-up with your primary care physician in 1 week as advised Follow-up with your surgeon Dr.Stewart Marlow for outpatient colonoscopy and further recommendations as advised. --- Complete the antibiotic course Augmentin as recommended. Seek immediate medical attention if your symptoms reoccur or worsen Please take all medications as instructed on discharge list below. Please call if you have any questions or problems. You can reach a [facility] hospitalist on duty at [facility] 24 hours a day by calling [phone] Pending Studies at Discharge: No Stand-Alone Forms: My [facility], Smoking Cessation Medications and DC Order Prescriptions: New oxycodone-acetaminophen [Percocet] 5-325 mg Tablet 1 tab PO Q8H PRN (Reason: pain) Qty: 15 0RF Advanced Probiotic 625 mg (10 billion cell) Capsule 2 cap PO DAILY Qty: 30 0RF amoxicillin-pot clavulanate 875-125 mg tablet 1 tab PO BID Qty: 12 0RF vancomycin 125 mg capsule 125 mg PO BID Qty: 30 0RF Continued gabapentin 600 mg tablet 600 mg PO BID albuterol sulfate 90 mcg/actuation HFA aerosol inhaler 2 puff INHALATION Q6H PRN (Reason: Pain) Excedrin Extra Strength 250-250-65 mg Tablet 1 tab PO DIRECTED PRN (Reason: Pain) nortriptyline 50 mg capsule 50 mg PO HS topiramate 50 mg tablet 50 mg PO DAILY [employer] Thyroid 60 mg tablet 120 mg PO DAILY Progesterone Tab 1 dose PO DIRECTED Rx Instructions: UNABLE TO VERIFY THIS MEDICATION Discontinued sulfamethoxazole-trimethoprim 800-160 mg tablet 1 tab PO BID Rx Instructions: WAS ORDERED 07/07/22 FOR 7 DAYS. tramadol 50 mg Tablet 50 mg PO DIRECTED PRN (Reason: Pain) Rx Instructions: DID NOT FIND ANY ORDER IN EXT MED HX. diclofenac sodium 75 mg tablet,delayed release (DR/EC) 75 mg PO DIRECTED PRN (Reason: Pain) Discharge Orders: Discharge Order (Routine); Ordered 08/07/22 Ordered By: Omi Howell/Other Patient Handouts: Low-Fiber Diet Admission Data Admit Date/Time: 07/30/22 22:40 Attending Provider: Omi Dejesus Admit Provider: Calos Faria Primary Care Provider: PCP,NO Other Providers: Calos Faria ; Ellie Allne ; Grant Nicholson
== END 2022-08-07 18:21 | disposition home or self-care (01) | DRG 392 ==
LOC: ED 17:18 → 3N 22:40 → SUATTDRO 22:40 → 3N 22:57